=== PATIENT | female | born 1990 | race Caucasian/White ===

== ENCOUNTER 2024-12-18 11:36 | Emergency (ER) | payer OTHER, SELFPAY ==
--- NOTE | ~2024-12-18 | CT_ITS ---
CLINICAL HISTORY: lower abdominal tenderness CT ABDOMEN AND PELVIS WITH CONTRAST Comparison: None Findings: No consolidation or effusion. No acute abnormalities in the solid organs. There are 3.1 cm right and 1.2 cm left hepatic lobe cysts. Additional subcentimeter hepatic hypodensities are too small to accurately characterize. No urolithiasis. No large calcified gallstone. No AAA. No bowel obstruction, pneumoperitoneum, or pneumatosis. Diffuse wall thickening throughout the colon with adjacent fat stranding. No ascites or organized fluid collection. There is prominent fluid distention of the stomach with air, fluid and food debris. There is wall thickening distally. The appendix is identified. No acute appendicitis. The uterus is anteverted. There are 2 adjacent right adnexal cystic lesions measuring 1.5 cm and 2.0 cm. There are 2 adjacent left adnexal cystic lesions measuring 1.5 cm and 1.3 cm. Urinary bladder is poorly distended. Multiple pelvic phleboliths. No acute fracture. IMPRESSION: 1. Pancolitis. No bowel perforation or ischemia. 2. No bowel obstruction or ascites. 3. Normal appendix. 4. Probable distal gastritis. 5. No obstructive or acute inflammatory changes in the genitourinary tract. 6. No urolithiasis. 7. Small bilateral ovarian/paraovarian cysts. This document has been electronically signed by: Galina Licea DO on 12/18/2024 16:46:27
[2024-12-18 11:52] VITALS: BP 168/85; PULSE 122; RESP 19; TEMP 37.1; O2SAT 98; BMI 19.1
--- NOTE | 2024-12-18 11:55 | ED_ITS ---
HPI - Abdominal Pain General Chief Complaint: Abdominal Pain Stated Complaint: blood in stool Time Seen by Provider: 12/18/24 15:00 Source: patient, RN notes reviewed and old records reviewed Mode of arrival: ambulatory Limitations: no limitations History of Present Illness ED Provider: Cliff HPI narrative: Patient is a 34-year-old female with no pmhx presenting to the ED with complaint of abdominal cramping, diarrhea, and blood in stool since Thursday. Reports 2- 3 episodes of liquid diarrhea per hour. States at times she has noted red blood in her stool, denies melena. States eating or drinking triggers episodes of diarrhea within 5 minutes or so. Denies abdominal pain at baseline but develops epigastric and lower abdominal cramping prior to having a bowel movement. Denies personal or family history of Crohns, IBD, colitis. Denies recent travel or antibiotic use. Has seen GI in the past and attributed her diarrhea to anxiet. Denies fevers. Reports one episode of vomiting Thursday and one today, but relates episode on Thu to taking a photo of her dog's incision and today to anxiety. Denies dizziness, lightheadedness, syncope. Related Data Previous Rx's ?Medication ?Instructions ?Recorded ciprofloxacin HCl 500 mg tablet 500 mg PO BID #6 tabs 12/18/24 (Cipro) ondansetron 4 mg disintegrating 4 mg PO Q8H PRN nausea and 12/18/24 tablet vomiting #10 tabs Allergies Allergy/AdvReac Type Severity Reaction Status Date / Time Penicillins [PENICILLINS] Allergy Intermediate HIVES Verified 12/18/24 11:54 Review of Systems Review of Systems As per HPI Yes all other systems are reviewed and are negative Constitutional: Reports as per HPI [facility] Social History Social History Smoked in Last 30 Days: Yes Use of substances other than those prescribed or required for medical reasons: Yes Substance Use Type: Marijuana Substance Use Frequency: Daily Substance Use Frequency Other:: 2-3 Last Used Substance: Hours (ago) Advance Directives: No Advance Directives Information Provided: Yes Do you have a plan to hurt others: No Plan Physical Exam ED Vital Signs: Vital Signs - 24 hr 12/18/24 11:52 12/18/24 14:33 Temperature 98.8 F 98.3 F Pulse Rate 122 H 83 Respiratory Rate 19 17 Blood Pressure 168/85 H 114/77 Pulse Oximetry 98 97 Oxygen Delivery Method Room Air BMI result Body Mass Index 19.1 Vital signs have been reviewed and appear to be correct. Blood pressure normal. Heart rate normal. Respiratory rate normal. Temperature normal. Oxygen saturation normal. Const General: cooperative, healthy appearing and no acute distress Orientation/consciousness: oriented to person, oriented to place, oriented to time and patient oriented x3 Limitations: no limitations HENMT Head: Yes normocephalic and Yes atraumatic Ears: external ears normal General nose exam: Normal external nose present Face and sinus: Yes face symmetric Mouth: oropharynx normal and moist mucous membranes Throat: Yes uvula midline Eyes Pupils: Equal, round and reactive pupils present Neck Neck: Yes normal visual inspection and Yes supple Resp Effort & Inspection: normal respiratory effort and able to speak in complete sentences Auscultation: clear to auscultation bilaterally Cardio Rate: regular rate Rhythm: regular rhythm Heart sounds: S1 normal heart sound present and S2 normal heart sound present GI Palpation (GI): Soft to palpation and Tenderness to palpation present (GI) (mild TTP of epigastric area and bilateral lower quadrants) Auscultation: normoactive bowel sounds General: Yes no CVA tenderness Back/Spine/Pelvis Back: no CVA tenderness Skin General skin exam: elasticity normal and turgor normal Neuro General: oriented to person, oriented to place, oriented to time, patient oriented x3, moves all extremities, no focal motor deficits and CN's II-XI intact bilaterally Cranial nerves: Yes Equal, round and reactive pupils present Cognition (Neuro): normal cognition Extrem General: Yes full ROM, Yes no pedal edema and Yes no calf tenderness Psych Mental Status: mental status grossly normal Affect: normal affect Thought process: Normal thought process present Course Course Course Narrative: This is a Rapid Medical Exam performed in triage by Monique Corona PA-C. Full HPI, ROS and PE to be performed by primary ED provider. 34-year-old female presenting to the ED c/o epigastric abdominal pain/cramping, diarrhea with dark stools x5 days. Admits to 2 episodes of emesis. PE: NAD, nontoxic appearing, ambulating w/steady gait no resp distress Plan: Labs, UA Medical Decision Making Medical Decision Making MDM Narrative: Patient is a 34-year-old female with no pmhx presenting to the ED with complaint of abdominal cramping, diarrhea, and blood in stool since Thursday. On exam patient is awake, A+Ox3, VS WNL, afebrile, normal neurological exam without focal deficits, physical exam findings as above. Given reported symptoms and physical exam findings, initial differential includes but is not limited to anemia, colitis, IBD, Crohns, C. diff, diverticulitis. Labs notable for leukocytosis with shift, no anemia, mild hypokalemia. CT notable for pancolitis without perforation, obstruction or abscess. My interpretation is in agreement with the radiologist's interpretation. Results discussed with patient and all questions answered. She is afebrile, hemodynamically stable, tolerating PO, and is not anemic. Feel she is stable for discharge at this time. Will treat with cipro 500 BID x 3 days. Will also send zofran for nausea. Advised patient to follow up with PCP as well as GI. Return precautions discussed at bedside. Patient verbalized understanding of and agreement with plan. Differential Diagnosis Differential Diagnoses: The differential diagnosis associated with the presentation includes as per [facility] Admission/Observation Consideration of admission/observation: Escalation of care including admission/observation considered Patient would have been admitted to the hospital had their work up had any findings where hospital admission was appropriate and their clinical presentation warranted hospital admission. Lab Data [facility] Lab Attestation statement: I reviewed the patient's lab results. as per [facility] 12/18/24 12:20 12/18/24 12:20 Labs: Lab Results 12/18/24 Range/Units 12:20 WBC 18.1 H (4.8-10.8) X10*3/uL RBC 4.58 (4.20-5.50) X10*6/uL Hgb 13.2 (12.0-16.0) g/dl Hct 39.6 (37.0-47.0) % MCV 86.5 (80.0-98.0) fL MCH 28.8 (27.0-33.0) pg MCHC 33.3 (31.0-35.0) g/dl RDW 12.5 (11.0-16.0) % Plt Count 475 H (160-400) X10*3/uL MPV 9.5 (9.4-12.3) fL Immature Gran % (Auto) 0.7 H (0.0-0.4) % Neut % (Auto) 73.1 H (45-73) % Lymph % (Auto) 12.7 L (20-40) % [place] % (Auto) 7.5 (2-11) % Eos % (Auto) 5.3 H (0-4) % Baso % (Auto) 0.7 (0-2) % Lymph # (Auto) 2.3 (1.2-4.9) X10*3/uL [place] # (Auto) 1.4 H (0.1-1.2) X10*3/uL Eos # (Auto) 1.0 H (0.0-0.4) X10*3/uL Baso # (Auto) 0.1 (0.0-0.2) X10*3/uL Abs Immat Gran (auto) 0.13 H (0.00-0.03) X10*3/uL Absolute Neuts (auto) 13.2 H (2.0-8.3) x10*3/uL Absolute Nucleated RBC 0.000 (0.0-0.012) X10*3/uL Nucleated RBC % (auto) 0.0 (0.0-0.2) /100WBC PT 12.7 H (10.9-12.4) SEC INR 1.1 (0.9-1.1) Sodium 139 (135-145) mmol/L Potassium 3.1 L (3.3-5.1) mmol/L Chloride 108 (96-108) mmol/L Carbon Dioxide 23 (22-29) mmol/L Anion Gap 11 L (12-20) BUN 7 L (9-16) mg/dL Creatinine 0.80 (0.5-1.4) mg/dL Estim Creat Clear Calc 81.5 Estimated GFR > 60 Random Glucose 101 (60-115) mg/dL Calcium 8.5 (8.4-10.2) mg/dL Magnesium 2.0 (1.6-2.6) mg/dL Total Bilirubin 0.4 (0.0-1.0) mg/dL Direct Bilirubin 0.2 (0.0-0.5) mg/dL AST 15 (5-31) U/L ALT 9 (0-31) U/L Alkaline Phosphatase 115 (39-117) U/L Total Protein 7.4 (6.5-8.0) g/dL Albumin 4.2 (3.5-5.0) g/dL Lipase 21 (8-78) U/L Urine Color Dark Yellow Urine Appearance Clear Urine pH 6.0 (5.0-9.0) Ur Specific [place] >= 1.030 H (1.005-1.025) Urine Protein 30 (1+) H (Neg-Trace) mg/dL Urine Glucose (UA) Negative (Negative) mg/dL Urine Ketones 80 (Negative) mg/dL Urine Blood Trace H (Negative) Urine Nitrite Negative (Negative) Ur Leukocyte Esterase Negative (Negative) Urine RBC 0-2 (0-2) /HPF Urine WBC 0-5 (0-5) /HPF Ur Squamous Epith Cells 6-10 (0-2) /HPF Urine Bacteria Trace (None Seen) Hyaline Casts 3-5 (0-2) /LPF Urine Test NEGATIVE (NEGATIVE) Independent Interpretation I performed an independent interpretation of an: CT Scan Interpretation: CT A/P notable for pancolitis without perforation, obstruction or abscess. Radiology Impression Discussion of test interpretation with radiology: I have reviewed the radiologist's reading. Radiologist Impression: IMPRESSION: 1. Pancolitis. No bowel perforation or ischemia. 2. No bowel obstruction or ascites. 3. Normal appendix. 4. Probable distal gastritis. 5. No obstructive or acute inflammatory changes in the genitourinary tract. 6. No urolithiasis. 7. Small bilateral ovarian/paraovarian cysts. External Record Review External record reviewed: Inpatient record, Office record and Outpatient record Prescription Management I considered prescription management with: Antibiotic and Other Medications Administered Discontinued Medications Generic Name Dose Route Start Last Admin Trade Name Freq PRN Reason Stop Dose Admin Sodium Chloride 1,000 mls @ 999 mls/hr 12/18/24 15:45 12/18/24 16:04 Ns IV 12/18/24 16:45 999 mls/hr .Q1H1M YUSUF Administration Iohexol 100 ml 12/18/24 16:19 12/18/24 16:19 Iohexol 350 Mg/Ml 100 Ml Infus..Btl IV 12/18/24 16:20 85 ml ONCE ONE Administration Potassium Chloride 40 meq 12/18/24 16:34 12/18/24 17:03 Potassium Chloride Packet 20 Meq Packet PO 12/18/24 16:35 40 meq ONCE ONE Administration Discharge Plan Discharge Clinical Impression: Pancolitis Patient Disposition: Home, Self-Care Instructions: Colitis (ED) Additional Instructions: You were evaluated in the emergency department today for diarrhea and abdominal cramping. Your CT scan showed patel colitis which is inflammation of your intestines. You are being treated with an antibiotic, complete the full course as prescribed. You are also being prescribed ondansetron for nausea which you can use every 8 hours as prescribed. Your stool panel is pending and you will be contacted with any positive results or if a change in antibiotics is indicated. Be sure to drink plenty of fluids with electrolytes Such as Gatorade, Powerade, Pedialyte. we recommend that you follow-up with your primary care provider within the next few days. We also recommend that you follow-up with the municipal bond trader. Return to the emergency department if you develop fever, worsening pain, worsening blood in your stool or vomit, or unable to tolerate the antibiotics by mouth, or any other new or concerning symptoms. Prescriptions: New ciprofloxacin HCl [Cipro] 500 mg tablet 500 mg PO BID Qty: 6 0RF ondansetron 4 mg tablet,disintegrating 4 mg PO Q8H PRN (Reason: nausea and vomiting) Qty: 10 0RF Referrals: [facility] [Provider Group] - 1 week (pancolitis) Stand Alone Forms: Work/School Release Print Language: Hebrew
[2024-12-18 12:25] LABS: MANUAL DIFF FLAG NO
[2024-12-18 12:26] LABS: Basophils Absolute Auto 0.1 X10*3/uL (0.0-0.2); Basophils Percent Auto 0.7 % (0-2); Eosinophils Percent Auto 5.3 % (0-4); Hematocrit 39.6 % (37.0-47.0); Hemoglobin 13.2 g/dl (12.0-16.0); Imm Gran Abs Auto 0.13 X10*3/uL (0.00-0.03); Imm Gran Pct Auto 0.7 % (0.0-0.4); Lymphocytes Absolute Auto 2.3 X10*3/uL (1.2-4.9); Lymphocytes Percent Auto 12.7 % (20-40); Mean Corpuscular HGB Conc 33.3 g/dl (31.0-35.0); Mean Corpuscular Hemoglobin 28.8 pg (27.0-33.0); Mean Corpuscular Volume 86.5 fL (80.0-98.0); Mean Platelet Volume 9.5 fL (9.4-12.3); Monocytes Absolute Auto 1.4 X10*3/uL (0.1-1.2); Monocytes Percent Auto 7.5 % (2-11); Neutrophils Absolute Auto 13.2 x10*3/uL (2.0-8.3); Neutrophils Percent Auto 73.1 % (45-73); Platelet Count 475 X10*3/uL (160-400); Red Blood Count 4.58 X10*6/uL (4.20-5.50); Red Cell Distribution Width 12.5 % (11.0-16.0); White Blood Count 18.1 X10*3/uL (4.8-10.8)
[2024-12-18 12:27] LABS: Appearance Urine Clear; Color Urine Dark Yellow; Glucose Urine UA Negative (Negative); Leukocyte Esterase Urine Negative (Negative); Nitrite Urine Negative (Negative); Specific Gravity - Urine >= 1.030 (1.005-1.025); UMIC TRIGGER UACC YES; Urine Blood Trace (Negative); Urine Ketones 80 mg/dL (Negative); Urine Protein 30 (1+) mg/dL (Neg-Trace)
[2024-12-18 12:29] LABS: UPreg QC Valid YES; Urine Pregnancy NEGATIVE (NEGATIVE)
[2024-12-18 12:32] LABS: Bacteria Urine Trace (None Seen); INTERNATIONAL NORM RATIO 1.1 (0.9-1.1); Prothrombin Time 12.7 SEC (10.9-12.4); RBC Urine 0-2 /HPF (0-2); WBC Urine 0-5 /HPF (0-5)
[2024-12-18 12:41] LABS: Alanine Aminotransferase 9 U/L (0-31); Albumin Level 4.2 g/dL (3.5-5.0); Alkaline Phosphatase 115 U/L (39-117); Anion Gap 11 (12-20); Aspartate Amino Transferase 15 U/L (5-31); Bilirubin Direct 0.2 mg/dL (0.0-0.5); Bilirubin Total 0.4 mg/dL (0.0-1.0); Blood Urea Nitrogen 7 mg/dL (9-16); Calcium 8.5 mg/dL (8.4-10.2); Carbon Dioxide 23 mmol/L (22-29); Chloride 108 mmol/L (96-108); Creatinine Clr Calc Pharmacy 81.5; Estimated Glomerular Filt Rate > 60; Glucose Random 101 mg/dL (60-115); Lipase 21 U/L (8-78); Potassium 3.1 mmol/L (3.3-5.1); Sodium 139 mmol/L (135-145); Total Protein 7.4 g/dL (6.5-8.0)
[2024-12-18 14:33] VITALS: BP 114/77; PULSE 83; RESP 17; TEMP 36.8; O2SAT 97
[2024-12-18] MEDS: 0.9 % Sodium Chloride 1,000 ML 999 ML IV (16:04)
[2024-12-18] MEDS: iohexoL 350 MG/ML 100 ML INFUS..BTL IV (16:19)
[2024-12-18] MEDS: Potassium Chloride Packet 20 MEQ PACKET 40 MEQ PO (17:03)
[2024-12-18 17:41] VITALS: BP 114/77; PULSE 83; RESP 17; TEMP 36.8; O2SAT 97
[2024-12-18 17:48] VITALS: BP 112/71; PULSE 72; RESP 16; TEMP 36.7; O2SAT 98
[2024-12-18 18:43] LABS: CDiff Gene PCR NEGATIVE (Negative)
[2024-12-19 09:00] LABS: Adenovirus F 40/41 Not Detected (Not Detect.); Astrovirus Not Detected (Not Detect.); Campylobacter Not Detected (Not Detect.); Cryptosporidium Not Detected (Not Detect.); Cyclospora cayetanensis Not Detected (Not Detect.); E. coli EAEC Not Detected (Not Detect.); E. coli EPEC Not Detected (Not Detect.); E. coli ETEC Not Detected (Not Detect.); E. coli STEC Not Detected (Not Detect.); Entamoeba histolytica Not Detected (Not Detect.); Giardia lamblia Not Detected (Not Detect.); Norovirus GI/GII Not Detected (Not Detect.); Plesiomonas shigelloides Not Detected (Not Detect.); Rotavirus A Not Detected (Not Detect.); Salmonella Not Detected (Not Detect.); Sapovirus Not Detected (Not Detect.); Shigella sp./EIEC Not Detected (Not Detect.); Vibrio Not Detected (Not Detect.); Vibrio Cholerae Not Detected (Not Detect.); Yersinia enterocolitica Not Detected (Not Detect.)
== END 2024-12-18 17:48 | disposition home or self-care (01) ==
PROVIDERS: Physician Assistant; Registered Nurse Emergency; Emergency Provider Emergency Medicine
DX: K52.9 Noninfective gastroenteritis and colitis, unspecified (principal); R10.30 Lower abdominal pain, unspecified; F12.90 Cannabis use, unspecified, uncomplicated
CPT/HCPCS: 36415; 74177; 80048; 80076; 81001; 81025; 83690; 83735; 85025; 85610; 87493; 87507; 96360; 99284; Q9967

== ENCOUNTER → 2024-12-18 15:42 | Outpatient (BNV) | payer OTHER, SELFPAY | PROVIDERS: Emergency Provider Emergency Medicine; Visit Provider Radiology Diagnostic Radiology | DX: K76.89 Other specified diseases of liver (principal) | CPT/HCPCS: 74177 ==

== ENCOUNTER 2025-02-15 12:17 | Outpatient (AMB) | payer OTHER, SELFPAY ==
--- NOTE | 2025-02-15 12:18 | A.OFFVIS_ITS ---
Vital Signs 02/15/25 12:19 Height 5 ft 5 in Weight 118 lb BMI 19.6 BP 120/80 Blood Pressure Location Rt brachial Position Sitting Pulse 96 Pulse Source Pulse Oximeter Pulse Oximetry (%) 100 Oxygen Delivery Method Room Air Intake Visit Reasons: pancolitis Intake Note: Patient new consult for pancolitis Patient cc: C.O. recent hx of multiple GI concerns. Pt reports having diarrhea, rectal bleeding, abd pain. Pt states that this had been at its worst in December 2024 when she went [place] [facility] Pt started low FODMAP and abx per ED and has been doing much better since. Proposal Review Analyst Required: No Accompanied by: Self / Same As Patient Allergies Penicillins (PENICILLINS) Allergy (Intermediate, Verified 12/18/24 11:54) HIVES Medication List - Last Reconciled 02/15/25 by Ne Schmidt CNP hydroxyzine HCl 25 mg PO BID HPI HPI pancolitis: Details: Patient is a 34-year-old female with PMH of anxiety. Referred by PCP for further evaluation colitis. Patient presents for further evaluation of gastrointestinal complaints following an episode of pancolitis in December 2024, which was diagnosed after severe abdominal pain, diarrhea, and grossly bloody stools, resulting in an ED visit. At that time, imaging showed pancolonic inflammation without perforation/obstruction/abscess, and patient was treated with a 7?10 day course of antibiotics, with symptomatic improvement. Since treatment, intermittent, minimal, bright red blood per rectum persists, typically associated with increased straining; no recurrence of large volume bleeding. Reports significant improvement in appetite and transition to formed stools after dietary changes, now eating regularly. Patient reported nearly two years of non-formed stools, intermittent decreased appetite, hematochezia, and chronic external hemorrhoid since early , with GI evaluation in [place] focused on anxiety management, fiber supplementation, and antiemetics (not taken). Noted u nintentional weight loss to ~114?115 lbs (prior baseline ~125 lbs), now slowly regaining. Denies recent heartburn, dysphagia, or anorexia. Medical history significant for diagnosed anxiety disorder; denies diabetes, hypertension, hyperlipidemia, cancer. No history of IBD or celiac in first- degree relatives, but maternal cousin and aunt with celiac disease. Surgical history only significant for benign right breast lump excision >10 years ago. Family hx non-contributory for colon or gastric cancer. Social hx: -Diet: Adopted low-FODMAP, gluten-free, unprocessed ?clean? eating pattern with routine meals (breakfast: eggs, yogurt, fruit; lunch/dinner: rice/potato, protein, vegetables); avoids milk, has butter/yogurt; limited processed food. -Alcohol: Very rare, <1x/mo -Tobacco: Smoked cigarettes, then vaped (started 2020); ceased vaping 01-02-25 -Drugs: Daily cannabis oil vaping; denies other drug use. -Occupation: Flexible/own schedule - family hx as documented -denies personal hx of CA -denies significant cardiopulmonary history -tolerated anesthesia in the past without difficulty. [facility] Medical History (Updated 02/15/25 @ 13:35 by Ne Schmidt CNP) Hemorrhoid Blood in stool Unintentional weight loss Diarrhea Surgical History H/O vaginal surgery History of lumpectomy of right breast Family History Mother Thyroid cancer Diabetes Father Alcoholic Brother Depressed Alcoholic Heroin abuse Maternal Grandmother Diabetes Maternal Grandfather Stroke Paternal Grandfather Parkinson disease Paternal Grandmother Hx of schizophrenia Social History Alcohol intake: current Alcohol intake frequency: holidays/special occasions only Patient Tobacco Use Status: Current everyday Tobacco user Substance Use Type: Marijuana Review of Systems Const Reports as per HPI ENT Reports as per HPI Card Reports as per HPI Resp Reports as per HPI GI Reports as per HPI Reports as per HPI Physical Exam Vital Signs: Last Vital Signs Pulse 96 02/15/25 12:19 BP 120/80 02/15/25 12:19 Pulse Ox 100 02/15/25 12:19 Oxygen Delivery Method Room Air 02/15/25 12:19 BMI result Body Mass Index 19.6 Const General: healthy appearing, no acute distress and well developed Nutritional Appearance: average body habitus Orientation/consciousness: patient oriented x3 HEENT Head: Yes normal to inspection, Yes normocephalic and Yes atraumatic Face and sinus: Yes normal facial exam Eyes General: appearance normal, both eyes and all related structures Neck Neck: Yes normal visual inspection Resp Effort & Inspection: normal respiratory effort, able to speak in complete sentences, no tracheal deviation and symmetric chest movement Auscultation: clear to auscultation bilaterally Cardio Jugular venous distension: no JVD Rate: regular rate Rhythm: regular rhythm Heart sounds: S1 normal heart sound present, S2 normal heart sound present, no gallops and no murmurs GI Inspection: Yes normal to inspection and No distended Palpation (GI): Soft to palpation, not firm, nontender and No hepatosplenomegaly present Auscultation: normal bowel sounds Neuro General: patient oriented x3 Gait exam (Neuro): Normal gait present Psych Appearance: grossly normal Mental Status: mental status grossly normal Speech and movement: Normal speech and movement present Affect: normal affect Attitude: cooperative Thought process: Normal thought process present Thought content: Normal thought content present Insight: Good insight present (Psych) Judgement: Good judgement present (Psych) Assessment & Plan Assessment & Plan (1) Blood in stool: Code(s): K92.1 - Melena Category: Medical Plan: Chronic gastrointestinal bleeding and altered bowel habits post-treated pancolitis of unclear etiology (differentials incl. IBD, celiac, IBS, Hemorrhoidal bleeding, Thyroid dysfunction, other colitis or more severe colorectal neoplasm). Symptoms resolved after dietary changes, but intermittent hematochezia persists; unintentional weight loss concerning for ongoing organic pathology. Additional Testing: -Comprehensive fasting labs: CBC, CMP, LFTs, inflammatory markers, celiac se rology, TSH, A1C, HIV, hepatitis panel -Repeat to confirm normalization post-recent colitis -Stool studies: Celiac panel, infectious/inflammatory panel -Chest X-ray (r/o systemic pathology given weight loss, smoking hx) -Colonoscopy (with biopsy as indicated) Medication Management:Rx for colonoscopy: Miralax split prep + four laxative tabs Lifestyle Recommendations: -Maintain current ?clean,? unprocessed, low-FODMAP/gluten-free diet; continue dairy avoidance if effective -Increase water intake (reduce Gatorade) -Continue avoidance of nicotine Follow-Up: -Return after fasting labs, stool tests, and CXR; ~4?6 weeks for review -Colonoscopy to be prioritized within next 8 weeks -PCP/MEDICAL DEVICE SALES to ensure cervical cancer screening is scheduled/up to date -Discuss possible additional cancer screening (mammogram) with PCP if GI/cervical w/u negative (2) Hemorrhoid: Code(s): K64.9 - Unspecified hemorrhoids Category: Medical Qualifiers: Hemorrhoid type: unspecified Qualified Code(s): K64.9 - Unspecified hemorrhoids Plan: Ongoing minor bright red blood per rectum, worse with straining; longstanding hx Additional Testing: Addressed via colonoscopy; no specific studies at this time Lifestyle Recommendations: Avoid straining, maintain high-fiber diet if tolerated, hydrate Follow-Up: Monitor for increased bleeding or prolapse; reassess post-GI workup Plan Follow-up in 4 weeks or sooner as needed Time: I spent a total of 40 minutes on the date of encounter which includes: Preparing to see the patient (reviewed previous documentation, test results and medical history) Performing a medically appropriate exam and/or evaluation Ordering medications, tests, and procedures Documenting clinical information in the health record Orders: Orders Hemoglobin A1c Today R19.7 - Diarrhea, unspecified, R63.4 - Abnormal weight loss TSH reflex Free T4 Today R19.7 - Diarrhea, unspecified Calprotectin, Fecal Today R19.7 - Diarrhea, unspecified C Reactive Protein Today R19.7 - Diarrhea, unspecified Hepatitis A,B,C Profile Today R63.4 - Abnormal weight loss XR chest 2V Today R63.4 - Abnormal weight loss Transglutaminase IgA Today R19.7 - Diarrhea, unspecified Complete Blood Count Auto Diff Today R19.7 - Diarrhea, unspecified Comprehensive [place]. Panel Fast Today R19.7 - Diarrhea, unspecified HIV Ab/Ag Today R63.4 - Abnormal weight loss Medications: New bisacodyl (Dulcolax (bisacodyl)) Take four tablets pre colonoscopy instructions 20 mg (4 x 5 mg) PO ONCE 4 tabs 0RF 1 day polyethylene glycol 3350 (Miralax) per colonoscopy prep instructions 238 grams PO ONCE 238 grams 0RF Coding Level of Care Code New Pt New Pt Level 4 (89897) Patient Type New Diagnoses Blood in stool K92.1 Hemorrhoids, unspecified hemorrhoid type K64.9 Hemorrhoid type: unspecified
[2025-02-15 12:19] VITALS: BP 120/80; PULSE 96; O2SAT 100; BMI 19.6
--- OUTSIDE RECORDS SUMMARY | 2025-02-15 12:58 | XMS_ITS | Encounter Summary ---
Author Organization [facility] Address [address] [place] [phone] Phone Care Team Providers Care Clay Burner Name Role Phone Aida Short MD Primary Care Provider [phone] Encounter Details Date Type Department Care Team (Late st Contact Info) Description 02/10/2014 Documentation [facility] [address] [place] [address] Family Medicine, Physician [address], [place] [id number] Social History Tobacco Use Types Packs/Day Years Used Date Smoking Tobacco: Never Assessed Comments Unknown Sex and Gender Information Value Date Recorded Sex Assigned at Not on file Legal Sex Female 4:36 PM EDT Gender Identity Not on file Sexual Orientation Not on file documented as of this encounter Plan of Treatment Not on file documented as of this encounter Visit Diagnoses Not on filedocumented in this encounter Care Teams Clay Burner Relationship Specialty Start Date End Date Aida Short MD [address] [place] [id number] PCP - General 02/20/17 10/21/22 documented as of this encounter
--- OUTSIDE RECORDS SUMMARY | 2025-02-15 12:58 | XMS_ITS ---
Author Name [facility] Organization Unknown Care Team Organization Name Specialty Phone Email Start Date End Da te [facility] KILO YOUSIF Primary Care 12/19/2022 02/29/2024 [facility] Shiloh Duarte Primary Care 05/20/2022 024
--- OUTSIDE RECORDS SUMMARY | 2025-02-15 12:58 | XMS_ITS | Clinical Summary ---
Author Organization 175 [facility] Address 175 [place] [address] Phone Care Team Providers Care Community Services Officer Name Role Phone Kathy Oliveira MD Primary Care Prov ider Allergies Active Allergy Reactions Criticality Noted Date Comments Penicillin V Hives 03/02/2014 Medications nicotine (NICODERM CQ) 14 mg/[address] 1 Patch onto the skin daily for 60 days. 3 Active ondansetron (ZOFRAN) 4 mg tablet Take 1 Tablet by mouth every 12 hours as needed for Nausea Active pantoprazole (PROTONIX) 40 mg EC tablet Take 1 tablet (40 mg total) by mouth 1 (one) time each day. Take in am on empty stomach wait 30 mins and then eat to activate the medication 30 each 4 Active Additional Information Patient not taking.Reported on 12/20/2024 psyllium (METAMUCIL) 3.4 gram packet Take 1 packet by mouth 1 (one) time each day. 30 packet 11 4 Active Additional Information Patient not taking.Reported on 12/20/2024 hydrOXYzine HCL (ATARAX) 25 mg tablet Take 1 tablet (25 mg total) by mouth 2 (two) times a day. 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 Lump in neck 11/21/2020 Encounters Date Type Department Care Team Description 12/26/2024 Telephone Adult Medicine [address] [phone] Kathy Oliveira MD Referral 12/20/2024 10:30 AM EDT Office Visit Adult Medicine [address] [phone] Ariadne Rendon PA Pancolitis ([facility] V24, [facility] V28) (Primary Dx); Anxiety from Last 3 Months Immunizations Name Administration Dates Next Due DTP 04/11/1994, 2,1990,08/19,1990 [id number] (Pentacel) 2mo to less than 5yo 07/22/1991,1990,1990,06/23 HPV, Quadrivalent 08/31/2007,04/28/2007,02/25/20 07 Hepatitis B Pediatric (Enger ix B; Recombivax HB) to less than 20 yo 09/16/2001,05/17/2001,2001 IPV Inactivated polio (Ipol) 6wks and older 04/11/1994,10/19/1991,1990,06/23 Influenza Quadravalent, MDCK , 0.5ml, preservative free (Flucelvax) 6mo and older 05/14/2021 Influenza trivalent, with pr eservative (Fluzone; Afluria) 6mo and older 05/13/2021 MMR, measles mumps and rubel la Live (Priorix; M-M-R II) 12mo and older 04/07/1995,07/22/1991 Meningococcal MCV4P 02/24/2007 PPD Test 11/28/2020 Td Tetanus diptheria (Tdvax) 7yo and older 2001 Tdap Tetanus diptheria acell ular pertussis (Boostrix; Adacel) 7yo and older 03/07/2019,02/24/2007 Surgical History Surgery Date Site/Laterality Comments OTHER SURGICAL HISTORY PROCEDURE: ---- OTHER ----; COMMENT: vaginal reconstruction, [place]ia[place] [facility] [place] Right PROCEDURE: HISTORICAL BREAST LUMPECTOMY; COMMENT: Dr. Mcclain Medical History Medical History Date Comments Anxiety DX:Anxiety Family History Medical History Relation Name Comments Depression Brother 1 Alcohol/Drug Brother 2 heroine Alcohol abuse Father Stroke Maternal Grandfather Diabetes Maternal Grandmother Diabetes Mother Other: Thyroid Cancer Mother 30s? Parkinson's Disease Paternal Grandfather Schizophrenia Paternal Grandmother with p yschosis Breast cancer Neg Hx Colon cancer Neg Hx Heart attack Neg Hx Ovarian cancer Neg Hx Relation Name Status Comments Brother 1 Alive Brother 2 Alive Father Alive Maternal Grandfather Maternal Grandmother Mother Alive Paternal Grandfather Paternal Grandmother Social History Tobacco Use Types Packs/Day Years Used Date Smoking Tobacco: Every Day Smokeless Tobacco: Never Tobacco Cessation:Ready to Q uit: Not Asked; Counseling Given: Not Answered Alcohol Use Standard Drinks/Week Comments Not Currently 0 (1 standard drink = 0.6 oz pur e alcohol) Comments No Sex and Gender Information Value Date Recorded Sex Assigned at Not on file Legal Sex Female 10:22 PM EST Gender Identity Not on file Sexual Orientation Not on file Obstetrics History Last Filed Vital Signs Vital Sign Reading Time Taken Comments Blood Pressure 160/90 12/20/2024 10:16 AM EDT Pulse 102 12/20/2024 10:16 AM EDT Temperature 36.7 C (98 F) 12/20/2024 10:16 AM EDT Respiratory Rate 14 12/20/2024 10:16 AM EDT Oxygen Saturation - - Inhaled Oxygen Concentration - - Weight 54 kg (119 lb) 12/20/2024 10:16 AM EDT Height 165.1 cm (5' 5 ) 12/20/2024 10:16 AM EDT Body Mass Index 19.8 12/20/2024 10:16 AM EDT Plan of Treatment Upcoming Encounters Date Type Department Care Team (Late st Contact Info) Description 02/27/2025 2:40 PM EDT Office Visit Gastroenterology - [place] 175 [facility] 175 [facility] [address] [place] [address] Aditi Miranda NP 175 [place] [address] Health Maintenance Due Date Last Done Comments Pneumococcal Vaccine: Pediatrics (0 to 5 Years) and At-Risk Patients (6 to 49 Years) (1 of 2 - PCV) 2009 Cervical Cancer Screening: Pap Smear 09/02/2020 09/02/2017, 09/02/2017 COVID-19 Vaccine (3 - Moderna risk series) 03/30/2021 03/02/2021, 02/02/2021 HIV Screening 06/21/2022 Hepatitis C Screening 06/21/2022 Social Influencers of Health Screening 06/21/2022 Depression Screening 07/13/2024 Influenza Vaccine (#1) 2025 05/14/2021, 2020 DTaP,Tdap,and Td Vaccines (9 - Td or Tdap) 03/07/2029 03/07/2019, 02/24/2007, 2001, Additional history exists Cholesterol Screening (Lipid Panel) 04/29/2029 04/29/2024, 04/29/2024 HIB Vaccines Completed 07/22/1991, 07/13, 1990, Additional history exists IPV Vaccines Completed 04/11/1994, 02/1992, 07/22/1991, Additional history exists MMR Vaccines Completed 04/07/1995, 07/22/1991 Hepatitis B Vaccines Completed 09/16/2001, 05/17/2001, 2001 Meningococcal ACWY Vaccine Completed 02/24/2007 HPV Vaccines Completed 08/31/2007, 04/12, 02/24/2007 Hepatitis A Vaccines Aged Out No long er eligible based on patient's age to complete this topic Meningococcal B Vaccine Aged Out No l onger eligible based on patient's age to complete this topic RSV Immunization Patients Under 20 months Aged Out No longer eligible based on patient's age to complete this topic Varicella Vaccines Aged Out No longer eligible based on patient's age to complete this topic Procedures Procedure Name Priority Date/Time Associated Diagnosis Comments LIPID PANEL Routine 04/29/2024 HM HPV Routine 09/02/2017 from Last 3 Months or Most Recently Relevant to Health Maintenance Results * (ABNORMAL) Lipid panel (04/29/2024) LDL/HDL Ratio 2 0 - 4 Triglycerides 46 0 - 150 mg/dL Cholesterol 189 0 - 200 mg/dL HDL 79 >=40 mg/dL LDL Cholesterol 101(A) 0 - 100 mg/dL Blood Venous blood specimen / Unknown Historical Provider LAB BLOOD ORDERABLES Shannen l Result * Cervical Cancer Screening: HPV (09/02/2017) Cervical Cancer Screening: HPV Abstracted, no interpretation Historical Provider HEALTH MAINTENANCE Final Result from Last 3 Months or Most Recently Relevant to Health Maintenance Insurance [employer] Care Teams Community Services Officer Relationship Specialty Start Date End Date Kathy Oliveira MD [address] [place] [phone] PCP - General Internal Medicine 02/10/22
== END 2025-02-15 13:19 | disposition home or self-care (01) ==
LOC: HO.HGI 12:17
PROVIDERS: Visit Provider Nurse Practitioner Family
DX: K92.1 Melena (principal); K64.9 Unspecified hemorrhoids
CPT/HCPCS: 99204

== ENCOUNTER 2025-02-16 09:57 | Outpatient (REF) | payer OTHER, SELFPAY ==
--- NOTE | ~2025-02-16 | XR_ITS ---
EXAMINATION: XR CHEST 2 VIEWS HISTORY: R63.4 - Abnormal weight loss COMPARISON: There are no prior studies available for comparison. FINDINGS: PA and lateral views of the chest are submitted. The lungs are expanded and clear. There is no pleural effusion, pneumothorax, or pulmonary vascular congestion. The heart is normal in size. The bones are intact. XR/XR chest 2V IMPRESSION: Normal examination of the chest. Electronically signed by: Ricardo Merritt MD 02/16/2025 10:37 AM EDT
[2025-02-16 10:11] LABS: MANUAL DIFF FLAG NO
--- OUTSIDE RECORDS SUMMARY | 2025-02-16 10:26 | XMS_ITS | Clinical Summary ---
Author Organization 175 [facility] Address [address] [place] [address] Phone Care Team Providers Care Back End Developer Name Role Phone Kathy Oliveira MD Primary [...] Care Team Description 12/26/2024 Telephone Adult Medicine [address] [phone] Kathy Oliveira MD Referral 12/20/2024 10:30 AM EDT Office Visit Adult Medicine [address] [phone] Ariadne Rendon PA Pancolitis ([facility] V24, [facility] V28) (Primary Dx); Anxiety from Last 3 Months Immunizations Name Administration Dates Next Due DTP 04/11/1994, 2,1990,08/19,1990 [id number] (Pentacel) 2mo to less than 5yo 07/22/1991,1990,1990,06/23 [...] ---- OTHER ----; COMMENT: vaginal reconstruction, labiaplasty, [facility] [place] 08/15/2014 Right PROCEDURE: HISTORICAL BREAST [...] 2:40 PM EDT Office Visit Gastroenterology - [place] 175 [facility] 175 [facility] [address] [place] [address] Aditi Miranda NP 175 [place] [address] Health Maintenance Due Date Last Done Comments [...] to Health Maintenance Insurance [employer] Care Teams Back End Developer Relationship Specialty Start Date End Date Kathy Oliveira MD [address] [place] [address] PCP - General Internal Medicine 02/10/22
--- OUTSIDE RECORDS SUMMARY | 2025-02-16 10:26 | XMS_ITS | Encounter Summary ---
Author Organization [facility] Address [address] [place] [address] Phone Care Team Providers Care Digital Imaging Technician Name Role Phone Aida Short MD Primary Care Provider [phone] Encounter Details Date Type Department Care Team (Late st Contact Info) Description 02/10/2014 Documentation [facility] [place] Family Medicine [address] [place] [address] Family Medicine, Physician [address] [place], [place] 6[address] Social History Tobacco Use Types Packs/Day Years [...] on filedocumented in this encounter Care Teams Digital Imaging Technician Relationship Specialty Start Date End Date Aida Short MD [address] [place] [address] PCP - General 02/20/17 10/21/22 documented as of this encounter
[2025-02-16 10:34] LABS: Hematocrit 38.8 % (37.0-47.0); Hemoglobin 12.1 g/dl (12.0-16.0); Imm Gran Abs Auto 0.04 X10*3/uL (0.00-0.03); Imm Gran Pct Auto 0.4 % (0.0-0.4); Lymphocytes Absolute Auto 2.3 X10*3/uL (1.2-4.9); Mean Corpuscular HGB Conc 31.2 g/dl (31.0-35.0); Mean Corpuscular Hemoglobin 27.6 pg (27.0-33.0); Mean Corpuscular Volume 88.4 fL (80.0-98.0); NRBC Abs Auto 0.000 X10*3/uL (0.0-0.012); NRBC Pct Auto 0.0 /100WBC (0.0-0.2); Platelet Count 389 X10*3/uL (160-400); Red Blood Count 4.39 X10*6/uL (4.20-5.50); White Blood Count 9.3 X10*3/uL (4.8-10.8)
[2025-02-16 10:46] LABS: Hemoglobin A1C 104.1289 umol/L; Total Hemoglobin (HGBA1C) 3198.1260 umol/L
[2025-02-16 11:12] LABS: Alanine Aminotransferase 9 U/L (0-31); Albumin Level 4.2 g/dL (3.5-5.0); Alkaline Phosphatase 98 U/L (39-117); Anion Gap 10 (12-20); Aspartate Amino Transferase 13 U/L (5-31); Blood Urea Nitrogen 8 mg/dL (9-16); Calcium 8.4 mg/dL (8.4-10.2); Carbon Dioxide 26 mmol/L (22-29); Chloride 107 mmol/L (96-108); Estimated Glomerular Filt Rate > 60; Potassium 3.9 mmol/L (3.3-5.1); Sodium 139 mmol/L (135-145); Total Protein 7.3 g/dL (6.5-8.0)
[2025-02-16 11:36] LABS: HBS Num1 124.57 mIU/mL (0-7.99); HBc Num1 0.06 S/CO (0.00-0.79); HBsAGNum1 0.44 S/CO (0.00-0.99); HIV Num 1 0.05 S/CO (0.00-0.99); Hepatitis A Antibody IgM 0.16 Index (0-0.79); Hepatitis B Surface Antigen Negative (Negative); ~HepC Num1 0.11 S/CO (0.00-0.79); ~Hepatitis A Antibody IgM Nonreactive (Nonreactive); ~Hepatitis B Surface Antibody REACTIVE (Nonreactive); ~Hepatitis C Antibody Nonreactive (Nonreactive)
== END 2025-02-16 09:58 | disposition home or self-care (01) ==
LOC: HO.XRAY 09:57
PROVIDERS: Visit Provider Nurse Practitioner Family
DX: Z11.59 Encounter for screening for other viral diseases (principal); Z11.4 Encounter for screening for human immunodeficiency virus [HIV]; Z13.1 Encounter for screening for diabetes mellitus; R63.4 Abnormal weight loss; R19.7 Diarrhea, unspecified
CPT/HCPCS: 36415; 71046; 80053; 83036; 84443; 85025; 86140; 86364; 86704; 86706; 86709; 86803; 87340; 87389

== ENCOUNTER → 2025-02-16 10:14 | Outpatient (BNV) | payer OTHER, SELFPAY | PROVIDERS: Visit Provider Radiology Diagnostic Radiology | DX: R63.4 Abnormal weight loss (principal) | CPT/HCPCS: 71046 ==

== ENCOUNTER 2025-02-21 07:15 | Outpatient (REF) | payer OTHER, SELFPAY ==
--- OUTSIDE RECORDS SUMMARY | 2025-02-21 09:41 | XMS_ITS | Clinical Summary ---
Author Organization 175 [facility] Address [address] [place] [address] Phone Care Team Providers Care Glass Novelty Maker Name Role Phone Kathy Oliveira MD Primary [...] Care Team Description 12/26/2024 Telephone Adult Medicine [address] [phone] Kathy Oliveira MD Referral 12/20/2024 10:30 AM EDT Office Visit Adult Medicine [address] [phone] Ariadne Rendon PA Pancolitis ([facility] V24, [facility] V28) (Primary Dx); Anxiety from Last 3 Months Immunizations Name Administration Dates Next Due DTP 04/11/1994, 2,1990,08/19,1990 [id number] (Pentacel) 2mo to less than 5yo 07/22/1991,1990,1990,06/23 [...] ---- OTHER ----; COMMENT: vaginal reconstruction, labiaplasty, [facility] [place] BREAST [place]UM[place]Y 08/15/2014 Right [...] 2:40 PM EDT Office Visit Gastroenterology - [place] 175 [facility] 175 [facility] [address] [place] [address] Aditi Miranda NP [address] [address] 03/14/2025 9:30 AM EDT Office Visit Adult Medicine [facility] [address] [place] [address] Cristin Hdz PA [address] [place] [address] Health Maintenance Due Date Last Done Comments [...] Associated Diagnosis Comments LIPID PANEL Routine 04/29/2024 HPV Routine 09/02/2017 from Last 3 Months [...] Result * Cervical Cancer Screening: HPV (09/02/2017) Pathologist [facility] Cervical Cancer Screening: HPV Abstracted, no interpretation Historical Provider HEALTH MAINTENANCE Final Result from Last 3 Months or Most Recently Relevant to Health Maintenance Insurance [employer] Care Teams Glass Novelty Maker Relationship Specialty Start Date End Date Kathy Oliveira MD [address] [place] [address] [phone] PCP - General Internal Medicine 8/1/22
--- OUTSIDE RECORDS SUMMARY | 2025-02-21 09:41 | XMS_ITS | Encounter Summary ---
Author Organization [facility] Address [address] [place] [address] Phone Care Team Providers Care Field Coil Winder Name Role Phone Aida Short MD Primary Care Provider [phone] Encounter Details Date Type Department Care Team (Late st Contact Info) Description 02/10/2014 Documentation [facility] [place] Family Medicine [address] [place] [address] Family Medicine, Physician [address] [place], [place] [address] Social History Tobacco Use Types Packs/Day Years [...] on filedocumented in this encounter Care Teams Field Coil Winder Relationship Specialty Start Date End Date Aida Short MD [address] [place] [phone] PCP - General 02/20/17 10/21/22 documented as of this encounter
[2025-02-27 18:23] LABS: Calprotectin, Fecal 1440 mcg/g
== END 2025-02-21 07:16 | disposition home or self-care (01) ==
LOC: HO.LNP 07:15
PROVIDERS: Visit Provider Nurse Practitioner Family
DX: R19.7 Diarrhea, unspecified (principal)
CPT/HCPCS: 83993

== ENCOUNTER 2025-03-06 09:47 | Outpatient (REF) | payer OTHER, SELFPAY ==
--- OUTSIDE RECORDS SUMMARY | 2025-03-06 10:40 | XMS_ITS | Encounter Summary ---
Author Organization [facility] Address [address] [place] [address] Phone Care Team Providers Care Bending Machine Operator Name Role Phone Aida Short MD Primary Care Provider [phone] Encounter Details Date Type Department Care Team (Late st Contact Info) Description 02/10/2014 [place]ation [facility] [address] [place] [address] Family Medicine, Physician [address] [place], [place] [address]181 Social History Tobacco Use Types Packs/Day Years [...] on filedocumented in this encounter Care Teams Bending Machine Operator Relationship Specialty Start Date End Date Aida Short MD [address] [place] [address] PCP - General 02/20/17 10/21/22 documented as of this encounter
--- OUTSIDE RECORDS SUMMARY | 2025-03-06 10:40 | XMS_ITS | Clinical Summary ---
Author Organization 175 [facility] Address 175 [place] [address] Phone Care Team Providers Care Quality Improvement Consultant Name Role Phone Kathy Oliveira MD Primary [...] Care Team Description 12/26/2024 Telephone Adult Medicine [address] [phone] Kathy Oliveira MD Referral 12/20/2024 10:30 AM EDT Office Visit Adult Medicine [address] [phone] Ariadne Rendon PA Pancolitis ([facility] V24, [facility] V28) (Primary Dx); Anxiety from Last 3 Months Immunizations Name Administration Dates Next Due DTP 04/11/1994, 2,1990,08/19,1990 [id number] (Pentacel) 2mo to less than 5yo 07/22/1991,1990,1990,06/23 [...] ---- OTHER ----; COMMENT: vaginal reconstruction, labiaplasty, [facility] [place] 08/15/2014 Right PROCEDURE: HISTORICAL BREAST [...] Care Team (Late st Contact Info) Description 03/14/2025 9:30 AM EDT Office Visit Adult Medicine [address] [phone] Cristin Hdz PA [address] [place] [address] Health Maintenance Due Date Last Done Comments [...] to Health Maintenance Insurance [employer] Care Teams Quality Improvement Consultant Relationship Specialty Start Date End Date Kathy Oliveira MD [address] [place] [phone] PCP - General Internal Medicine 02/10/22
[2025-03-09 16:58] LABS: VITAMIN D (1,25 OH) D3 32 pg/mL; Vit D (1,25-Dihydroxy) Total 32 pg/mL (18-72); Vitamin D (1,25 OH) D2 <8 pg/mL
== END 2025-03-06 09:48 | disposition home or self-care (01) ==
LOC: HO.LAB 09:47
PROVIDERS: Visit Provider Nurse Practitioner Family
DX: R19.5 Other fecal abnormalities (principal)
CPT/HCPCS: 36415; 81479; 82397; 82652; 83520; 86140; 88346; 88350

== ENCOUNTER 2025-04-05 07:46 | Outpatient (AMB) | payer OTHER, SELFPAY ==
--- OUTSIDE RECORDS SUMMARY | 2025-04-05 07:48 | XMS_ITS | Encounter Summary ---
Author Organization [facility] Address [address] [place] [address] Phone Care Team Providers Care Shrimping Boat Captain Name Role Phone Aida Short MD Primary Care Provider [phone] Encounter Details Date Type Department Care Team (Late st Contact Info) Description 02/10/2014 Documentation [facility] [place] [address] [place] [address] Family Medicine, Physician [address] [place], [place] [phone] Social History Tobacco Use Types Packs/Day Years [...] on filedocumented in this encounter Care Teams Shrimping Boat Captain Relationship Specialty Start Date End Date Aida Short MD [address] [place] [phone] PCP - General 02/20/17 10/21/22 documented as of this encounter
--- OUTSIDE RECORDS SUMMARY | 2025-04-05 07:48 | XMS_ITS | Encounter Summary ---
Author Organization [facility] Address [address] [place] [address] Phone Care Team Providers Care Associate Professor Of Philosophy Name Role Phone Aida Short MD Primary Care Provider [phone] Encounter Details Date Type Department Care Team (Late st Contact Info) Description 02/17/2014 Documentation [facility] [place] Family Medicine [address] [place] [address] Family Medicine, Physician [address] [place], [place] [phone] Social History Tobacco Use Types Packs/Day Years [...] on filedocumented in this encounter Care Teams Associate Professor Of Philosophy Relationship Specialty Start Date End Date Aida Short MD [address] [place] [phone] PCP - General 02/20/17 10/21/22 documented as of this encounter
--- OUTSIDE RECORDS SUMMARY | 2025-04-05 07:48 | XMS_ITS | Clinical Summary ---
Author Organization [facility] Address [address] [place] [address] Phone Care Team Providers Care Ranch Hand Livestock Name Role Phone Unavailable Primary Care Provider [...]
--- OUTSIDE RECORDS SUMMARY | 2025-04-05 07:48 | XMS_ITS | Encounter Summary ---
Author Organization [facility] Address [address] [place] [address] Phone Care Team Providers Care Liquid Fertilizer Servicer Name Role Phone Aida Short MD Primary Care Provider [phone] Encounter Details Date Type Department Care Team (Late st Contact Info) Description 02/26/2017 Conversion Encounter [facility] [place] [address] [place] [address] Social History Tobacco Use Types Packs/Day Years [...] on filedocumented in this encounter Care Teams Liquid Fertilizer Servicer Relationship Specialty Start Date End Date Aida Short MD [address] [place] [address] PCP - General 02/20/17 10/21/22 documented as of this encounter
--- OUTSIDE RECORDS SUMMARY | 2025-04-05 07:48 | XMS_ITS | Encounter Summary ---
Author Organization [facility] Address [address] [place] [address] Phone Care Team Providers Care Level Vial Setter Name Role Phone Aida Short MD Primary Care Provider [phone] Encounter Details Date Type Department Care Team (Late st Contact Info) Description 05/01/2011 Documentation [facility] [place] [address] [place] [address] Family Medicine, Physician [address] [place], [place] [address] Social History Tobacco Use Types Packs/Day Years [...] on filedocumented in this encounter Care Teams Level Vial Setter Relationship Specialty Start Date End Date Aida Short MD [address] [place] [address] PCP - General 02/20/17 10/21/22 documented as of this encounter
--- OUTSIDE RECORDS SUMMARY | 2025-04-05 07:48 | XMS_ITS | Clinical Summary ---
Author Organization [facility] Address [address] [place] [address] Phone Care Team Providers Care Engineering Supervisor Name Role Phone Kathy Oliveira MD Primary [...] AM EDT Office Visit Adult Medicine [address] [phone] Cristin Hdz PA Chronic abdominal pain (Primary Dx); Encounter for screening involving social determinants of health (SDoH); Screening for depression from Last 3 Months Immunizations Name Administration Dates Next Due DTP 04/11/1994, 2,1990,08/19,1990 [id number] (Pentacel) 2mo to less than 5yo 07/22/1991,1990,1990,06/23 [...] ---- OTHER ----; COMMENT: vaginal reconstruction, labiaplasty, [facility] BREAST LUMPECTOMY 08/15/2014 Right PROCEDURE: HISTORICAL BREAST [...] care for your loved ones. For example, child's nurse or elderly care for an older adult? [...] 2:00 PM EST Office Visit Adult Medicine [address] [phone] Kathy Oliveira MD [address] [place] [phone] Health Maintenance Due Date Last Done Comments [...] Cholesterol Screening (Lipid Panel) 04/29/2029 04/29/2024, 04/29/2024 RSV Immunization Adult Patients (1 - 1-dose 75+ series) 2065 HIB Vaccines Completed 07/22/1991, 10/11, 1990, Additional [...] Venous blood specimen / Unknown Historical Provider MD LAB BLOOD ORDERABLES Shannen l Result * Cervical Cancer Screening: HPV (09/02/2017) Pathologist [facility] Cervical Cancer Screening: HPV Abstracted, no interpretation Historical Provider HEALTH MAINTENANCE Final Result from Last 3 Months or Most Recently Relevant to Health Maintenance Insurance [place] [phone] Care Teams Engineering Supervisor Relationship Specialty Start Date End Date Kathy Oliveira MD [address] [place] [phone] PCP - General Internal Medicine 02/10/22
--- NOTE | 2025-04-05 07:50 | A.OFFVIS_ITS ---
Vital Signs 04/05/25 07:51 Height 5 ft 5 in Weight 120 lb 8 oz BMI 20.1 BP 99/68 Blood Pressure Location Lt brachial Position Sitting Pulse 85 Pulse Oximetry (%) 96 Oxygen Delivery Method Room Air Intake Visit Reasons: Pancolitis mgmt. ~6 week FUV. Intake Note: Patient 6 week follow up for Pancolitis mgmt, lab/stool and chest x-ray results. Patient denies any GI issues. Angular Js Developer Required: No Accompanied by: Self / Same As Patient Allergies Penicillins (PENICILLINS) Allergy (Intermediate, Verified 04/05/25 07:50) HIVES Medication List - Last Reconciled 04/05/25 by Ne Schmidt CNP bisacodyl (Dulcolax (bisacodyl)) 20 mg (4 x 5 mg) PO ONCE 1 day hydroxyzine HCl 25 mg PO BID polyethylene glycol 3350 (Miralax) 238 grams PO ONCE HPI HPI Pancolitis mgmt. ~6 week FUV.: Details: Patient is a 34-year-old female with PMH of anxiety. F/u for chronic GI sx and prior ER dx of pancolitis (December 2024), presumed IBD. Pt presents with ongoing but improved lower GI sx. States current sx are mild?mainly early AM urgency (must reach BR within ~6 minutes upon waking), with 2 BMs in AM and no further BMs for remainder of day. BM consistency described as first half formed, second half looser, minimal blood only if straining, no regular hematochezia. No abd pain, nausea, vomiting, or upper GI sx. Reports dietary modifications have continued (avoiding milk and caffeine, occasional yogurt/butter), with good adherence and improved wgt (now ~120 lbs; up from 118 lbs last month). No new systemic complaints. No medication changes. No hospitalization, UC flares, or new urgent care visits. [facility] Medical History (Updated 04/05/25 @ 12:04 by Ne Schmidt CNP) Inflammatory bowel disease Elevated fecal calprotectin Hemorrhoid Blood in stool Unintentional weight loss Diarrhea Surgical History H/O vaginal surgery History of lumpectomy of right breast Family History Mother Thyroid cancer Diabetes Father Alcoholic Brother Depressed Alcoholic Heroin abuse Maternal Grandmother Diabetes Maternal Grandfather Stroke Paternal Grandfather Parkinson disease Paternal Grandmother Hx of schizophrenia Social History Alcohol intake: current Alcohol intake frequency: holidays/special occasions only Patient Tobacco Use Status: Current everyday Tobacco user Substance Use Type: Marijuana Review of Systems Const Reports as per HPI ENT Reports as per HPI Card Reports as per HPI Resp Reports as per HPI GI Reports as per HPI Reports as per HPI Physical Exam Vital Signs: Last Vital Signs Pulse 85 04/05/25 07:51 BP 99/68 04/05/25 07:51 Pulse Ox 96 04/05/25 07:51 Oxygen Delivery Method Room Air 04/05/25 07:51 BMI result Body Mass Index 20.1 Const General: healthy appearing, no acute distress and well developed Nutritional Appearance: average body habitus Orientation/consciousness: patient oriented x3 HEENT Head: Yes normal to inspection, Yes normocephalic and Yes atraumatic Face and sinus: Yes normal facial exam Eyes General: appearance normal, both eyes and all related structures Neck Neck: Yes normal visual inspection Resp Effort & Inspection: normal respiratory effort, able to speak in complete sentences, no tracheal deviation and symmetric chest movement Cardio Jugular venous distension: no JVD GI Auscultation: normal bowel sounds Neuro General: patient oriented x3 Gait exam (Neuro): Normal gait present Psych Appearance: grossly normal Mental Status: mental status grossly normal Speech and movement: Normal speech and movement present Affect: normal affect Attitude: cooperative Thought process: Normal thought process present Thought content: Normal thought content present Insight: Good insight present (Psych) Judgement: Good judgement present (Psych) Results Reviewed Results Reviewed: CBC: / WNL CMP: / WNL (includes LFTs, kidney fxn) TSH: / Normal HIV Ag/Ab: / Negative Hepatitis panel: / All negative; pt immune to Hep B Chest X-ray: / NAD Celiac serology: / Negative for celiac dz Inflammatory markers: / Normal Fecal calprotectin: / elevated at 1440 IBD genetic marker: / Supportive of UC ( see scanned lab reports) Date of Service: 02/16/25 Procedure(s): XR chest 2V Accession Number(s): [id number] cc: Ne Schmidt PRESSFITTER~ EXAMINATION: XR CHEST 2 VIEWS HISTORY: R63.4 - Abnormal weight loss COMPARISON: There are no prior studies available for comparison. FINDINGS: PA and lateral views of the chest are submitted. The lungs are expanded and clear. There is no pleural effusion, pneumothorax, or pulmonary vascular congestion. The heart is normal in size. The bones are intact. XR/XR chest 2V IMPRESSION: Normal examination of the chest. Assessment & Plan Assessment & Plan (1) Inflammatory bowel disease: Code(s): K52.9 - Noninfective gastroenteritis and colitis, unspecified Category: Medical Plan: presumed IBD, now more likely UC by lab and genetic marker. Sx control w/ ongoing dietary adjustments; continued monitoring until colonoscopy confirms dx. Additional Testing: - Colonoscopy w/ bx (04/10/2025) for definitive dx and histologic grading. Medications: - No current GI Rx; hold on initiation pending scope. Lifestyle Recommendations: - Continue low-residue, lactose-reduced diet, no milk or caffeine; maintain hydration. - Education on colonoscopy prep provided verbally and in writing; highlighted campoverde steps for compliance. - Advised use of evidence-based dietary info only. Referrals / Coordination of Care: - Surgery/Endo team will contact pre-procedure; no new referrals. Follow-Up Plan: - F/u visit scheduled 04-27-2025 to review colonoscopy (scope + bx) and full pathology, adjust plan as needed. Interim portal contact for sx flares/concern. Plan Follow-up colonoscopy scheduled or sooner as needed Time: I spent a total of 23 minutes on the date of encounter which includes: Preparing to see the patient (reviewed previous documentation, test results and medical history) Performing a medically appropriate exam and/or evaluation Ordering medications, tests, and procedures Documenting clinical information in the health record Coding Level of Care Code Established Pt Est Pt Level 3 (67830) Patient Type Established Diagnoses Inflammatory bowel disease K52.9
[2025-04-05 07:51] VITALS: BP 99/68; PULSE 85; O2SAT 96; BMI 20.1
== END 2025-04-05 08:38 | disposition home or self-care (01) ==
LOC: HO.HGI 07:46
PROVIDERS: Visit Provider Nurse Practitioner Family
DX: K52.9 Noninfective gastroenteritis and colitis, unspecified (principal)
CPT/HCPCS: 99213

== ENCOUNTER 2025-04-10 08:16 | Day surgery (SDC) | payer OTHER, SELFPAY ==
--- OUTSIDE RECORDS SUMMARY | 2025-03-31 06:09 | XMS_ITS | Encounter Summary ---
Author Organization [facility] Address [address] [place] [address] Phone Care Team Providers Care Basket Weaver Name Role Phone Aida Short MD Primary Care Provider [phone] Encounter Details Date Type Department Care Team (Late st Contact Info) Description 02/17/2014 Documentation [facility] Family Medicine [address] [place] [address] Family Medicine, Physician [address] [place], [place] [address] Social History Tobacco Use Types Packs/Day Years [...] on filedocumented in this encounter Care Teams Basket Weaver Relationship Specialty Start Date End Date Aida Short MD [address] [place] [address] PCP - General 02/20/17 10/21/22 documented as of this encounter
--- OUTSIDE RECORDS SUMMARY | 2025-03-31 06:09 | XMS_ITS | Encounter Summary ---
Author Organization [facility] Address [address] [place] [address] Phone Care Team Providers Care Sheet Metal Helper Name Role Phone Aida Short MD Primary Care Provider [phone] Encounter Details Date Type Department Care Team (Late st Contact Info) Description 02/26/2017 Conversion Encounter [facility] [address] [place] [address] Social History Tobacco Use Types Packs/Day Years [...] on filedocumented in this encounter Care Teams Sheet Metal Helper Relationship Specialty Start Date End Date Aida Short MD [address] [place] [address] PCP - General 02/20/17 10/21/22 documented as of this encounter
--- OUTSIDE RECORDS SUMMARY | 2025-03-31 06:09 | XMS_ITS | Clinical Summary ---
Author Organization 175 [facility] Address [address] [place] [address] Phone Care Team Providers Care Computer Laboratory Technician Name Role Phone Kathy Oliveira MD Primary Care Prov ider Allergies Active Allergy Reactions Criticality Noted Date Comments Penicillin V Hives 03/02/2014 Medications hydrOXYzine HCL (ATARAX) 25 mg tablet Take 1 tablet (25 mg total) by mouth 2 (two) times a day. 60 tablet 1 12/21/19 25 Active Gavilax 17 gram/dose oral powder MIX AND DRINK 238 G BY MOUTH ONCE PER COLONOSCOPY PREP INSTRUCTIONS 02/16/20 25 Active Laxative, bisacodyl, 5 mg EC tablet TAKE 4 TABLETS BY MOUTH ONCE PRE COLONOSCOPY INSTRUCTIONS 02/16/20 25 Active nicotine (NICODERM CQ) 14 mg/[address] 1 Patch onto the skin daily for 60 days. 09/11/19 23 025 Discontinued(N on-compliance) ondansetron (ZOFRAN) 4 mg tablet Take 1 Tablet by mouth every 12 hours as needed for Nausea 025 Discontinued(N on-compliance) pantoprazole (PROTONIX) 40 mg EC tablet Take 1 tablet (40 mg total) by mouth 1 (one) time each day. Take in am on empty stomach wait 30 mins and then eat to activate the medication 30 each 11 06/14/20 24 025 Discontinued psyllium (METAMUCIL) 3.4 gram packet Take 1 packet by mouth 1 (one) time each day. 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 [place] BREAST LUMPECTOMY 08/15/2014 Right [...] drink = 0.6 oz pur e alcohol) Housing Instability Answer Date Recorde d Are you worried that in the next 2 months you may not have stable housing? No 03/14/2025 Food Access & Nutrition Answer Date Rec orded Do you have access to a vari ety of food including fruits and vegetables? Yes 03/14/2025 Health Literacy Answer Date Recorded How often do you need to hav e someone help you when you read instructions, pamphlets, or other written material from your doctor or pharmacy? Never 03/14/2025 Caregiver: How often do you need to have someone help you when you read instructions, pamphlets, or other written material from your doctor or pharmacy? Not on file 03/14/2025 Financial Risk Answer Date Recorded How hard is it for you to pa y for the very basics like food, housing, medical care, and air conditioning / heating? Not very hard 03/14/2025 Transportation Answer Date Recorded Has the lack of transportati on kept you from meetings, work, or from getting things needed for daily living? No Has the lack of transportati on kept you from medical appointments or from getting medications? No 03/14/2025 Social Isolation Answer Date Recorded How often do you feel lonely or isolated from th ose around you? Never 03/14/2025 Food Risk Answer Date Recorded Within the past 12 months we worried whether our food would run out before we got money to buy more. Never true 03/14/2025 Within the past 12 months th e food we bought just didn't last and we didn't have money to get more. Never true 03/14/2025 Dependent Care Answer Date Recorded Do you need help finding or paying for care for your loved ones. For example, child and family counselor or elderly care for an older adult? No 03/14/2025 Education Answer Date Recorded Do you think completing more education or training, like finishing a GED, going to college, or learning a trade, would be helpful for you? No 03/14/2025 Employment and Income Answer Date Recor ded During the last four weeks, have you been actively looking for work? No 03/14/2025 Living Situation Answer Date Recorded What is your living situation? 0 03/14/2025 Comments No Sex and Gender Information Value Date Recorded Sex Assigned at Not on file Legal Sex Female 10:22 PM EST Gender Identity Not on file Sexual Orientation Not on file Obstetrics History Last Filed Vital Signs Vital Sign Reading Time Taken Comments Blood Pressure 102/70 03/14/2025 9:41 AM EDT Pulse 90 03/14/2025 9:41 AM EDT Temperature 36.4 C (97.6 F) 03/14/2025 9:41 AM EDT Respiratory Rate 14 03/14/2025 9:41 AM EDT Oxygen Saturation 99% 03/14/2025 9:41 AM EDT Inhaled Oxygen Concentration - - Weight 54 kg (119 lb) 03/14/2025 9:41 AM EDT Height 165.1 cm (5' 5 ) 03/14/2025 9:41 AM EDT Body Mass Index 19.8 03/14/2025 9:41 AM EDT Plan of Treatment Upcoming Encounters Date Type Department Care Team (Late st Contact Info) Description 09/11/2025 2:00 PM EST Office Visit Adult Medicine [address] [phone] Kathy Oliveira MD [address] [place] [phone] Health Maintenance Due Date Last Done Comments Pneumococcal Vaccine: Pediatrics (0 to 5 Years) and At-Risk Patients (6 to 49 Years) (1 of 2 - PCV) 2009 Cervical Cancer Screening: Pap Smear 09/02/2020 09/02/2017, 09/02/2017 HIV Screening 06/21/2022 Hepatitis C Screening 06/21/2022 Influenza Vaccine (#1) 2025 05/14/2021, 2020 Social Influencers of Health Screening 03/14/2026 03/14/2025 DTaP,Tdap,and Td Vaccines (9 - Td or Tdap) 03/07/2029 03/07/2019, 02/24/2007, 2001, Additional history exists Cholesterol Screening (Lipid Panel) 04/29/2029 04/29/2024, 04/29/2024 HIB Vaccines Completed 07/22/1991, 10/11, 1990, Additional history exists IPV Vaccines Completed 04/11/1994, 02/1992, 07/22/1991, Additional history exists MMR Vaccines Completed 04/07/1995, 07/22/1991 Hepatitis B Vaccines Completed 09/16/2001, 05/17/2001, 2001 Meningococcal ACWY Vaccine Completed 02/24/2007 HPV Vaccines Completed 08/31/2007, 04/12, 02/24/2007 COVID-19 Vaccine Discontinued 03/02/2021, 02/02/2021 Depression Screening Completed 03/14/2025 Hepatitis A Vaccines Aged Out No long [...] to Health Maintenance Insurance [employer] Care Teams Computer Laboratory Technician Relationship Specialty Start Date End Date Kathy Oliveira MD [address] [place] [phone] PCP - General Internal Medicine 02/10/22
--- OUTSIDE RECORDS SUMMARY | 2025-03-31 06:09 | XMS_ITS | Encounter Summary ---
Author Organization [facility] Address [address] [place] [address] Phone Care Team Providers Care Elementary Principal Name Role Phone Aida Short MD Primary Care Provider [phone] Encounter Details Date Type Department Care Team (Late st Contact Info) Description 05/01/2011 Documentation [facility] Family Medicine [address] [place] [address] Family Medicine, Physician [address] [place], [place] [address] Social History Tobacco Use Types Packs/Day Years [...] on filedocumented in this encounter Care Teams Elementary Principal Relationship Specialty Start Date End Date Aida Short MD [address] [place] [phone] PCP - General 02/20/17 10/21/22 documented as of this encounter
--- OUTSIDE RECORDS SUMMARY | 2025-03-31 06:09 | XMS_ITS | Encounter Summary ---
Author Organization [facility] Address [address] [place] [address] Phone Care Team Providers Care Portfolio Strategist Name Role Phone Aida Short MD Primary Care Provider [phone] Encounter Details Date Type Department Care Team (Late st Contact Info) Description 02/10/2014 Documentation [facility] [place] Family Medicine [address] [place] [address] Family Medicine, Physician [address] [place], [place] [id number] Social History Tobacco Use Types Packs/Day Years [...] on filedocumented in this encounter Care Teams Portfolio Strategist Relationship Specialty Start Date End Date Aida Short MD [address] [place] [address] PCP - General 02/20/17 10/21/22 documented as of this encounter
--- OUTSIDE RECORDS SUMMARY | 2025-03-31 06:09 | XMS_ITS | Clinical Summary ---
Author Organization [facility] Address [address] [place] [address] Phone Care Team Providers Care Entrepreneurship Program Director Name Role Phone Unavailable Primary Care Provider Unavailabl e Immunizations Immunization Administration Dates Next Due DTP 04/11/1994, 2,1990,08/19,1990 HPV, Quadrivalent 08/31/2007,04/28/2007,02/25/20 07 Hep B, ped/adol 09/16/2001,05/17/2001,2001 Hib (PRP-T) 07/22/1991, 1,1990,06/23 IPV 04/11/1994, 2,1990,06/23 MMR 04/07/1995,07/22/1991 Meningococcal Conj (Menactra) MCV4P 02/24/2007 Td (adult) (MBL), 2 Lf tetan us toxoid, PF, adsorbed 2001 Tdap 02/24/2007 Family History Relation Name Status Comments Brother 1 Alive Brother: Alive and well, Alive and well Brother 2 Alive Brother: Alive and well, Alive and well Father Alive Father: Alive a nd well Mother Alive Mother: Alive a nd well Other Family history of ADD/ADHD Social History Tobacco Use Types Packs/Day Years Used Date Smoking Tobacco: Never Assessed Comments Unknown Sex and Gender Information Value Date Recorded Sex Assigned at Not on file Legal Sex Female 4:36 PM EDT Gender Identity Not on file Sexual Orientation Not on file Last Filed Vital Signs Vital Sign Reading Time Taken Comments Blood Pressure - - Pulse - - Temperature 36.9 C (98.5 F) 04/30/2011 12:00 AM EDT Respiratory Rate - - Oxygen Saturation - - Inhaled Oxygen Concentration - - Weight 49.4 kg (109 lb) 04/30/2011 12:00 AM EDT Height - - Body Mass Index - - Plan of Treatment Health Maintenance Due Date Last Done Comments Varicella Vaccines (1 of 2 - 13+ 2-dose series) 2003 DTaP,Tdap,and Td Vaccines (7 - Td or Tdap) 02/24/2017 02/24/2007, 2001, 04/11/1994, Additional history exists Influenza Vaccines (#1) 2025 COVID-19 Vaccine ( season) 2025 HIB Vaccines Completed 07/22/1991, 10/11, 1990, Additional history exists IPV Vaccines Completed 04/11/1994, 02/1992, 1990, Additional history exists MMR Vaccines Completed 04/07/1995, 07/22/1991 Hepatitis B Vaccines Completed 09/16/2001, 05/17/2001, 2001 Meningococcal Vaccine Completed 02/24/2007 HPV Vaccines Completed 08/31/2007, 04/12, 02/24/2007 Hepatitis A Vaccines Aged Out No long er eligible based on patient's age to complete this topic Men B Vaccine Aged Out No longer elig ible based on patient's age to complete this topic Pneumococcal Vaccine Aged Out No long er eligible based on patient's age to complete this topic
--- NOTE | 2025-04-06 10:30 | HO.ANESPROP2 ---
Documented by User: Monique Acosta NP 04/06/25 10:30 HPI - Anesthesia Eval Consult details Narrative: 34 yr old female for upper endoscopy, colonoscopy [facility] Active Problems Active Problems: All Active Problems Inflammatory bowel disease (Acute) Elevated fecal calprotectin (Acute) Hemorrhoid (Acute) Blood in stool (Acute) Unintentional weight loss (Acute) Diarrhea (Acute) Past Medical History Medical History Inflammatory bowel disease Elevated fecal calprotectin Hemorrhoid Blood in stool Unintentional weight loss Diarrhea Family History Family History Mother Thyroid cancer Diabetes Father Alcoholic Brother Depressed Alcoholic Heroin abuse Maternal Grandmother Diabetes Maternal Grandfather Stroke Paternal Grandfather Parkinson disease Paternal Grandmother Hx of schizophrenia Surgical History Surgical History H/O vaginal surgery History of lumpectomy of right breast Social History Social History Alcohol intake: current Alcohol intake frequency: holidays/special occasions only Patient Tobacco Use Status: Former Tobacco user Substance Use Type: Marijuana Substance Use Frequency: Daily Have you been hit, kicked, punched, or otherwise hurt by someone within the past year? If so, by whom?: No Are you DNR?: No Advance Directives: No Advance Directives Information Provided: Yes FDLMP: 03/28/25 Poor oral hygiene: No Meds Allergies Allergy/AdvReac Type Severity Reaction Status Date / Time Penicillins (PENICILLINS) Allergy Intermediate HIVES Verified 04/10/25 09:03 Home Medications ?Medication ?Instructions ?Recorded ?Confirmed ?Last Taken ?Type hydroxyzine HCl 25 mg tablet 25 mg PO BID 02/15/25 04/10/25 Unknown History Documented by User: Rikki Kang MD 04/10/25 10:08 [facility] Past Medical History Medical History Inflammatory bowel disease Elevated fecal calprotectin Hemorrhoid Blood in stool Unintentional weight loss Diarrhea Patient : No Family History Family History Mother Thyroid cancer Diabetes Father Alcoholic Brother Depressed Alcoholic Heroin abuse Maternal Grandmother Diabetes Maternal Grandfather Stroke Paternal Grandfather Parkinson disease Paternal Grandmother Hx of schizophrenia Family history of problems with anesthesia: No Surgical History Surgical History H/O vaginal surgery History of lumpectomy of right breast History of Problems with Anesthesia: No Social History Social History Alcohol intake: current Alcohol intake frequency: holidays/special occasions only Patient Tobacco Use Status: Former Tobacco user Substance Use Type: Marijuana Substance Use Frequency: Daily Have you been hit, kicked, punched, or otherwise hurt by someone within the past year? If so, by whom?: No Are you DNR?: No Advance Directives: No Advance Directives Information Provided: Yes FDLMP: 03/28/25 Poor oral hygiene: No Meds Allergies Allergy/AdvReac Type Severity Reaction Status Date / Time Penicillins (PENICILLINS) Allergy Intermediate HIVES Verified 04/10/25 09:03 Home Medications ?Medication ?Instructions ?Recorded ?Confirmed ?Last Taken ?Type hydroxyzine HCl 25 mg tablet 25 mg PO BID 02/15/25 04/10/25 Unknown History Exam Airway Mallampati Class: I TM Dist: >3cm Neck ROM: Full Loose/Missing/Broken Teeth: No Heart: ok Lungs: ok Assessment and Plan Assessment Anesthesia Assessment: Anesthesia Plan Discussed and Chart Reviewed Final Anesthetic Review Family History of Problems with Anesthesia: No History of Problems with Anesthesia: No NPO: Yes ASA Class: II Final Preanesthetic Review: No Changes in Pt Med Stat, Meds/Allgs Chart Reviewed, Consent Obtained/Reviewed and Anes Risks/Benef Reviewed Patient Risk: Low Procedure Risk: Intermediate Anesthetic Plan Anesthetic Plan: Agree w/ Assess. and Plan and TIVA Disposition: Standard PACU
[2025-04-06 12:43] VITALS: BMI 20.1
[2025-04-10 09:01] VITALS: BMI 20.1
[2025-04-10 09:03] LABS: UPreg QC Valid YES
[2025-04-10] MEDS: Lactated Ringers 1,000 ML 100 ML IVCONT (09:05)
[2025-04-10 09:12] VITALS: BP 119/75; PULSE 100; RESP 18; TEMP 36.7; O2SAT 100
--- NOTE | 2025-04-10 09:35 | MHC.SHP ---
Pre-Procedural Eval Section A - 24 Hr Update-Section A only Date of Service: 04/10/25 The patient is an INPATIENT: No Changes since office visit: Yes Patient answered all questions; No Cold of Flu in the past 2 weeks, No New Medical Problems and No Changes in Medication The patient has been examined within 24 hours of the surgical procedure. The History & Physical has been completed within 30 days and I have reviewed it.: Yes Section B - Complete if H&P > 30 days Chief Complaint: diarrhea, rectal bleeding, abd pain, pancolitis Allergies: Allergies Allergy/AdvReac Type Severity Reaction Status Date / Time Penicillins (PENICILLINS) Allergy Intermediate HIVES Verified 04/10/25 09:03 Plan Diagnosis/Plan: Unchanged I have reviewed the history and physical and performed a pertinent physical examination on my patient. No changes have occurred unless specified. Time Spent With Patient Time: Total time managing care of this patient today ____ minutes.
--- NOTE | 2025-04-10 10:11 | HO.OPN-COLON ---
Colonoscopy Operative Note Operative Note Date of Service: 04/10/25 Narrative: FLEXIBLE TRANSORAL UPPER GASTROINTESTINAL ENDOSCOPY WITH BIOPSIES AND COLONOSCOPY TILL CECUM WITH BIOPSIES Pre-op diagnosis: chronic diarrhea, abdominal pain, rectal bleeding, pancolitis Post-op diagnosis: Gastritis, left sided colitis, Diverticulosis, hemorrhoids Endoscopist:? Terrence Biggs MD Anesthesia:?MAC UPPER ENDOSCOPY Consent: Indications for the procedure and potential complications of bleeding, perforation, reaction to medications and missed diagnosis were discussed with the patient and informed consent was obtained. Instrument: Olympus GIF H 190 mid size upper endoscope Monitoring: Vital signs and clinical assessment, continuous EKG monitoring, Pulse oximetry, Carbon Dioxide monitoring and blood pressure monitoring were done throughout the procedure. Procedure: The patient was placed in the left lateral decubitis position and pre-procedure medications were administered and a bite block was placed. The endoscope was inserted into the mouth and advanced under direct vision to the third part of duodenum. A careful inspection was made as the upper endoscope was withdrawn including a retroflexed examination of the proximal stomach; Findings and interventions are described below. Findings: Larynx: Normal Esophagus: GE junction at 36 cms. No esophagitis or Ayers's. Stomach: Mild gastric antral erythema - biopsies were obtained from the antrum. Grade 2 flap valve on retroflexed examination of the cardia. Duodenum: Normal bulb and descending duodenum Biopsies were obtained from descending duodenum to check for celiac sprue Intervention: Biopsies as noted above COLONOSCOPY PROCEDURE NOTE Instrument: Olympus PCF H 190 L variable stiffness pediatric colonoscope Monitoring: Vital signs and clinical assessment, intermittent blood pressure monitoring, continuous EKG monitoring, Pulse oximetry and Carbon Dioxide monitoring were done throughout the procedure. Please see anesthesia flowsheet. Colon withdrawl time was 17 minutes. Procedure: The patient was placed in the left lateral decubitis position and pre-procedure medications were administered. After a digital rectal examination of the ano-rectum, the video colonoscope was inserted into the rectum and advanced through the colon to the cecum. The colonoscope was slowly withdrawn in a retrograde panoramic fashion and the colon mucosa was carefully examined including a retroflexed view of the rectum. Findings and interventions are described below. Procedure Difficulty: Colon was long and there was some loop formation Findings: Terminal Ileum: Distal 3-4 cms was examined and appeared normal - biopsies were obtained Cecum: Friable mucosa with a few aphthoid ulcers - biopsies were obtained Ascending Colon: Friable mucosa throughout the entire colon - biopsies were obtained Transverse Colon: Friable mucosa throughout the entire colon - biopsies were obtained Descending Colon: Friable mucosa throughout the entire colon. Sigmoid Colon: Scattered 3-4 mm aphthoid ulcers from 0 to 55 - multiple biopsies were obtained. Moderate diverticulosis Rectum: Scattered 3-4 mm aphthoid ulcers from 0 to 55 - multiple biopsies were obtained. Ano-rectum: Moderate internal hemorrhoids and perianal skin tags Colon preparation: Good after some irrigation. [place] Bowel Preparation Scale Right colon; 2 Transverse colon: 2 Left colon; 2 (0 = Unprepared colon segment with mucosa not seen due to solid stool that cannot be cleared. 1 = Portion of mucosa of the colon segment seen, but other areas of the colon segment not well seen due to staining, residual stool and/or opaque liquid. 2 = Minor amount of residual staining, small fragments of stool and/or opaque liquid, but mucosa of colon segment seen well. 3 = Entire mucosa of colon segment seen well with no residual staining, small fragments of stool or opaque liquid) Impression and Post Procedure Diagnosis: Endoscopy Findings: ESOPHAGUS: Normal STOMACH: Mild gastric antral erythema DUODENUM: Normal - biopsied to check for celiac sprue. Colonoscopy Findings: Scattered 3-4 mm aphthoid ulcers from 0 to 55 - multiple biopsies were obtained. Moderate diverticulosis seen in the sigmoid colon Moderate hemorrhoids on retroflexed exam. Plan: Pt has a FU appointment on 04/27/25 with Ne Schmidt NP Flexible sigmoidoscopy or fecal calprotectin in 6 months to confirm resolution of colitis and colonoscopy in 5 years for FU of ulcerative colitis. A summary of above findings and relevant handouts were given to the patient. BIOPSIES SHOWED: A. Small bowel, biopsy: Small intestinal mucosa within normal limits. B. Stomach, antrum, biopsy: Antral-type and oxyntic mucosa with mild chronic inactive inflammation; no Helicobacter organisms seen. C. Terminal ileum, biopsy: Ileocolonic mucosa within normal limits. D. Cecum, biopsy: Colonic mucosa within normal limits. E. Colon, ascending, biopsy: Colonic mucosa with mild crypt disarray. F. Colon, transverse, biopsy: Colonic mucosa with mild crypt disarray. G. Colon, sigmoid, biopsy: Chronic, moderately active, colitis. H. Rectum, biopsy: Chronic active proctitis. Comment: No dysplasia or granulomata are identified. Diagnostic morphologic features of celiac disease are not seen Pt informed of biopsy results and started on Lialda 2.5 grams daily. She was placed on the procedure recall list for a Flex Sig in 6 months and a colonoscopy in 5 years
[2025-04-10 11:12] VITALS: BP 101/69; RESP 18; TEMP 36.3; O2SAT 100
[2025-04-10 11:27] VITALS: BP 109/73; PULSE 68; RESP 18; TEMP 36.3; O2SAT 100
== END 2025-04-10 12:24 | disposition home or self-care (01) ==
PROVIDERS: Nurse Practitioner; Visit Provider Internal Medicine Gastroenterology
PROC: (CPT 45380; principal; 2025-04-10 10:10)
DX: K62.5 Hemorrhage of anus and rectum (principal); K57.30 Diverticulosis of large intestine without perforation or abscess without bleeding; K64.8 Other hemorrhoids; K64.4 Residual hemorrhoidal skin tags; K51.00 Ulcerative (chronic) pancolitis without complications; K51.20 Ulcerative (chronic) proctitis without complications; K29.50 Unspecified chronic gastritis without bleeding; Z79.899 Other long term (current) drug therapy; Z88.0 Allergy status to penicillin; Z98.890 Other specified postprocedural states; Z87.891 Personal history of nicotine dependence
CPT/HCPCS: 45380; 43239; 81025; 88305; 88313; 88342; J2003; J2704

== ENCOUNTER → 2025-04-10 08:16 | Outpatient (BNV) | payer OTHER, SELFPAY | PROVIDERS: Visit Provider Internal Medicine Gastroenterology | DX: R10.9 Unspecified abdominal pain (principal); K29.70 Gastritis, unspecified, without bleeding; K52.9 Noninfective gastroenteritis and colitis, unspecified; K57.90 Diverticulosis of intestine, part unspecified, without perforation or abscess without bleeding; K64.8 Other hemorrhoids | CPT/HCPCS: 43239; 45380 ==

== ENCOUNTER 2025-04-27 11:15 | Outpatient (AMB) | payer OTHER, SELFPAY ==
--- NOTE | 2025-04-27 11:21 | A.OFFVIS_ITS ---
Vital Signs 04/27/25 11:22 Height 5 ft 5 in Weight 120 lb BMI 20.0 BP 97/56 L Blood Pressure Location Lt brachial Position Sitting Pulse 86 Pulse Oximetry (%) 99 Oxygen Delivery Method Room Air Intake Visit Reasons: S/p egd/colon Intake Note: Patient follow up for EGD/Colonoscopy results. Patient cc: a little of rectal bleeding on and off, denies any other GI issues for tody. Test Desk Supervisor Required: No Accompanied by: Self / Same As Patient Allergies Penicillins (PENICILLINS) Allergy (Intermediate, Verified 04/27/25 11:21) HIVES HPI HPI S/p egd/colon: Details: Patient is a 34-year-old female with PMH of anxiety. FU for new dx colitis (UC pattern), review colonoscopy, ongoing rectal/hemorrhoidal sx, and initiation of mesalamine. Pt reports BM volume has increased in the last week since starting PO mesalamine last ; stool form remains normal, not loose. Rectal bleeding recurred twice, minimal, after mesalamine initiation?previously resolved. Hemorrhoids remain prominent and bothersome, >2 yrs, no new pain or prolapse; all topical OTC agents/sitz baths trialed previously with only partial relief and no recent topical Rx. No abd pain, fever, or signs of diverticulitis. Denies new upper GI sx (no heartburn, dyspepsia, nausea). No recent hospitalizations or urgent care visits. Pt adherent to mostly clean/organic dietary modification and maintaining lifestyle changes; no current dietary fiber restrictions. Resumed physical activity cautiously; inquires re: safe level. No difficulty tolerating PO meds. [facility] Medical History (Updated 04/27/25 @ 13:00 by Ne Schmidt CNP) Diverticulosis Gastritis Inflammatory bowel disease Elevated fecal calprotectin Hemorrhoid Blood in stool Unintentional weight loss Diarrhea Surgical History History of esophagogastroduodenoscopy (EGD) Hx of colonoscopy H/O vaginal surgery History of lumpectomy of right breast Family History Mother Thyroid cancer Diabetes Father Alcoholic Brother Depressed Alcoholic Heroin abuse Maternal Grandmother Diabetes Maternal Grandfather Stroke Paternal Grandfather Parkinson disease Paternal Grandmother Hx of schizophrenia Social History Alcohol intake: current Alcohol intake frequency: holidays/special occasions only Patient Tobacco Use Status: Former Tobacco user Substance Use Type: Marijuana Review of Systems Const Reports as per HPI ENT Reports as per HPI Card Reports as per HPI Resp Reports as per HPI GI Reports as per HPI Reports as per HPI Physical Exam Vital Signs: Last Vital Signs Pulse 86 04/27/25 11:22 BP 97/56 L 04/27/25 11:22 Pulse Ox 99 04/27/25 11:22 Oxygen Delivery Method Room Air 04/27/25 11:22 BMI result Body Mass Index 20.0 Const General: healthy appearing, no acute distress and well developed Nutritional Appearance: average body habitus Orientation/consciousness: patient oriented x3 HEENT Head: Yes normal to inspection, Yes normocephalic and Yes atraumatic Face and sinus: Yes normal facial exam Eyes General: appearance normal, both eyes and all related structures Neck Neck: Yes normal visual inspection Resp Effort & Inspection: normal respiratory effort, able to speak in complete sentences, no tracheal deviation and symmetric chest movement Cardio Jugular venous distension: no JVD GI Rectal Exam - Female: visual inspection normal, normal sphincter tone, External hemorrhoid(s) present, No Internal hemorrhoid(s) present, No Rectal prolapse, No fecal impaction, No Lesions present (GI), No Anal fissure(s) present, No Laceration(s) present (GI), No Excoriation present (GI), No mass and No tenderness Neuro General: patient oriented x3 Gait exam (Neuro): Normal gait present Psych Appearance: grossly normal Mental Status: mental status grossly normal Speech and movement: Normal speech and movement present Affect: normal affect Attitude: cooperative Thought process: Normal thought process present Thought content: Normal thought content present Insight: Good insight present (Psych) Judgement: Good judgement present (Psych) Results Reviewed Results Reviewed: Operative Note Date of Service: 04/10/25 Narrative: FLEXIBLE TRANSORAL UPPER GASTROINTESTINAL ENDOSCOPY WITH BIOPSIES AND COLONOSCOPY TILL CECUM WITH BIOPSIES Pre-op diagnosis: chronic diarrhea, abdominal pain, rectal bleeding, pancolitis Post-op diagnosis: Gastritis, left sided colitis, Diverticulosis, hemorrhoids Endoscopist: Terrence Biggs MD UPPER ENDOSCOPY Procedure: The patient was placed in the left lateral decubitis position and pre-procedure medications were administered and a bite block was placed. The endoscope was inserted into the mouth and advanced under direct vision to the third part of duodenum. A careful inspection was made as the upper endoscope was withdrawn including a retroflexed examination of the proximal stomach; Findings and interventions are described below. Findings: Larynx: Normal Esophagus: GE junction at 36 cms. No esophagitis or Ayers's. Stomach: Mild gastric antral erythema - biopsies were obtained from the antrum. Grade 2 flap valve on retroflexed examination of the cardia. Duodenum: Normal bulb and descending duodenum Biopsies were obtained from descending duodenum to check for celiac sprue Intervention: Biopsies as noted above COLONOSCOPY PROCEDURE NOTE Procedure: The patient was placed in the left lateral decubitis position and pre-procedure medications were administered. After a digital rectal examination of the ano-rectum, the video colonoscope was inserted into the rectum and advanced through the colon to the cecum. The colonoscope was slowly withdrawn in a retrograde panoramic fashion and the colon mucosa was carefully examined including a retroflexed view of the rectum. Findings and interventions are described below. Procedure Difficulty: Colon was long and there was some loop formation Findings: Terminal Ileum: Distal 3-4 cms was examined and appeared normal - biopsies were obtained Cecum: Friable mucosa with a few aphthoid ulcers - biopsies were obtained Ascending Colon: Friable mucosa throughout the entire colon - biopsies were obtained Transverse Colon: Friable mucosa throughout the entire colon - biopsies were obtained Descending Colon: Friable mucosa throughout the entire colon. Sigmoid Colon: Scattered 3-4 mm aphthoid ulcers from 0 to 55 - multiple biopsies were obtained. Moderate diverticulosis Rectum: Scattered 3-4 mm aphthoid ulcers from 0 to 55 - multiple biopsies were obtained. Ano-rectum: Moderate internal hemorrhoids and perianal skin tags Colon preparation: Good after some irrigation. [place] Bowel Preparation Scale Right colon; 2 Transverse colon: 2 Left colon; 2 Impression and Post Procedure Diagnosis: Endoscopy Findings: ESOPHAGUS: Normal STOMACH: Mild gastric antral erythema DUODENUM: Normal - biopsied to check for celiac sprue. Colonoscopy Findings: Scattered 3-4 mm aphthoid ulcers from 0 to 55 - multiple biopsies were obtained. Moderate diverticulosis seen in the sigmoid colon Moderate hemorrhoids on retroflexed exam. Plan: Pt has a FU appointment on 04/27/25 with Ne Schmidt NP Flexible sigmoidoscopy or fecal calprotectin in 6 months to confirm resolution of colitis and colonoscopy in 5 years for FU of ulcerative colitis. A summary of above findings and relevant handouts were given to the patient. PATHOLOGY: A. Small bowel, biopsy: Small intestinal mucosa within normal limits. B. Stomach, antrum, biopsy: Antral-type and oxyntic mucosa with mild chronic inactive inflammation; no Helicobacter organisms seen. C. Terminal ileum, biopsy: Ileocolonic mucosa within normal limits. D. Cecum, biopsy: Colonic mucosa within normal limits. E. Colon, ascending, biopsy: Colonic mucosa with mild crypt disarray. F. Colon, transverse, biopsy: Colonic mucosa with mild crypt disarray. G. Colon, sigmoid, biopsy: Chronic, moderately active, colitis. H. Rectum, biopsy: Chronic active proctitis. Comment: No dysplasia or granulomata are identified. Diagnostic morphologic features of celiac disease are not seen Clinical History Pre-Op Dx: Diarrhea, rectal bleeding, ABD pain, pancolitis Post-Op Dx: Upper: Gastritis Lower: Left side colitis, diverticulosis, hemorrhoids Pt informed of biopsy results and started on Lialda 2.5 grams daily. She was placed on the procedure recall list for a Flex Sig in 6 months and a colonoscopy in 5 years Date of Service: 02/16/25 Procedure(s): XR chest 2V Accession Number(s): [id number] cc: Ne Schmidt HEATER PLANER OPERATOR~ EXAMINATION: XR CHEST 2 VIEWS HISTORY: R63.4 - Abnormal weight loss COMPARISON: There are no prior studies available for comparison. FINDINGS: PA and lateral views of the chest are submitted. The lungs are expanded and clear. There is no pleural effusion, pneumothorax, or pulmonary vascular congestion. The heart is normal in size. The bones are intact. XR/XR chest 2V IMPRESSION: Normal examination of the chest. Assessment & Plan Assessment & Plan (1) Ulcerative colitis: Comment: 04/10/25 colonoscopy complete with good prep after irrigation-colitis (sigmoid), proctitis, aphthoid ulcers scattered through out, Moderate diverticulosis (sigmoid), Moderate hemorrhoids Code(s): K51.90 - Ulcerative colitis, unspecified, without complications Category: Medical Qualifiers: Ulcerative colitis location: other ulcerative colitis Digestive disease complication type: with rectal bleeding Qualified Code(s): K51.811 - Other ulcerative colitis with rectal bleeding Plan: Left sided, Stable. Early maintenance phase on mesalamine, increase BM volume; mild rectal bleeding likely hemorrhoidal vs mucosal fragility; needs ongoing monitoring. No acute flare. Additional testing: - Plan repeat CBC, LFTs in 3 months to monitor for mesalamine AE. - Stool calprotectin (ordered to complete in 6 months; for disease activity surveillance). Medications: - Mesalamine PO: Continue current dose, review for tolerance and lab monitoring. Indefinite maintenance; reassess after 6-12 months if stable. Lifestyle Recommendations: - Continue high-fiber/clean diet as tolerated. - Bowel hygiene, avoid constipation. - Safe to resume physical activity/boxing as tolerated?monitor for flares. - Provided educational handouts (ulcerative colitis, diet, bowel hygiene, exercise precautions). Referrals / Coordination of Care: - Release of info to PCP per pt request (pending documentation). Follow-Up Plan: - FU q3mo with labs/stool studies 1-2wks prior to appt. - Instructions to report new GI sx, rash, or med intolerance via portal. (2) Hemorrhoid: Code(s): K64.9 - Unspecified hemorrhoids Category: Medical Qualifiers: Hemorrhoid type: unspecified Qualified Code(s): K64.9 - Unspecified hemorrhoids Plan: Current Status: Chronic, large, non-thrombosed, bothersome (cosmetic and mild symptom burden), no prolapse or severe pain. OTC topicals/sitz baths trialed with incomplete relief. No recent prescription topicals. Additional testing: - None at this time. Medications: - Rx proctifoam (hydrocortisone 1%/pramoxine) topical, 15g tube, up to 5x/day PRN; 1 tube dispensed (cost discussed, discount card provided). - Continue sitz baths, toilet hygiene, avoid straining. Lifestyle Recommendations: - Maintain soft, formed stool; hydration emphasized. - Reinforce avoidance of prolonged sitting/straining. Referrals / Coordination of Care: - General surgery consult order placed (pt agreeable) for hemorrhoid management options/counseling regarding surgical and non-surgical interventions. Follow-Up Plan: - Monitor for clinical improvement; may escalate to procedural intervention if refractory or ? symptom burden. (3) Gastritis: Code(s): K29.70 - Gastritis, unspecified, without bleeding Category: Medical Qualifiers: Gastritis type: superficial Chronicity: chronic Gastritis bleeding: without bleeding Qualified Code(s): K29.30 - Chronic superficial gastritis without bleeding Plan: No current upper GI complaints, not warranting med at this time. Additional testing: - None unless new sx. Medications: - Pharmacy Student re: OTC H2RA (famotidine) PRN if dyspepsia/heartburn recurs. Lifestyle Recommendations: - Continue dietary vigilance; avoid triggers. Follow-Up: - Symptomatic management as needed. (4) Diverticulosis: Code(s): K57.90 - Diverticulosis of intestine, part unspecified, without perforation or abscess without bleeding Category: Medical Plan: Asymptomatic; incidental finding. No evidence of diverticulitis. Additional testing: - None needed unless sx. Medications: - None. Lifestyle Recommendations: - Diet as tolerated; no need to avoid seeds/nuts/popcorn per current evidence. - Emphasize high-fiber intake, regular hydration. Refer/Coordination: - None at this time. Follow-Up: - Routine monitoring. Plan Follow-up in 3 months or sooner as needed Time: I spent a total of 32 minutes on the date of encounter which includes: Preparing to see the patient (reviewed previous documentation, test results and medical history) Performing a medically appropriate exam and/or evaluation Ordering medications, tests, and procedures Documenting clinical information in the health record Orders: Orders Comprehensive Met. Panel 3 Months K51.90 - Ulcerative colitis, unspecified, without complications Calprotectin, Fecal 6 Months K51.90 - Ulcerative colitis, unspecified, without complications C Reactive Protein 3 Months K51.90 - Ulcerative colitis, unspecified, without complications Complete Blood Count Auto Diff 3 Months K51.90 - Ulcerative colitis, unspecified, without complications Referrals General Surgery Referral K64.9 - Unspecified hemorrhoids Medications: New hydrocortisone-pramoxine 1-1 % (Proctofoam HC) Apply to anal area, as needed, up to 5 times daily 1 appl [place] QID PRN 15 grams 0RF hemorrhoids Coding Level of Care Code Established Pt Est Pt Level 3 (81155) Patient Type Established Diagnoses Other ulcerative colitis with rectal bleeding K51.811 Ulcerative colitis location: other ulcerative colitis Digestive disease complication type: with rectal bleeding Hemorrhoids, unspecified hemorrhoid type K64.9 Hemorrhoid type: unspecified Chronic superficial gastritis without bleeding K29.30 Gastritis type: superficial Chronicity: chronic Gastritis bleeding: without bleeding Diverticulosis K57.90
[2025-04-27 11:22] VITALS: BP 97/56; PULSE 86; O2SAT 99
--- OUTSIDE RECORDS SUMMARY | 2025-04-27 14:25 | XMS_ITS | Encounter Summary ---
Author Organization [facility] Address [address] [place] [phone] Phone Care Team Providers Care Construction Equipment Operator Name Role Phone Aida Short MD Primary Care Provider Encounter Details Date Type Department Care Team (Late st Contact Info) Description 02/10/2014 Documentation [facility] [place] [address] [place] [address] Family Medicine, Physician [address], [place] [id number] Social History Tobacco Use Types Packs/Day Years [...] on filedocumented in this encounter Care Teams Construction Equipment Operator Relationship Specialty Start Date End Date Aida Short MD [address] [place] [id number] PCP - General 02/20/17 10/21/22 documented as of this encounter
--- OUTSIDE RECORDS SUMMARY | 2025-04-27 14:25 | XMS_ITS | Encounter Summary ---
Author Organization [facility] Address [address] [place] [phone] Phone Care Team Providers Care Sand Bobber Name Role Phone Aida Short MD Primary Care Provider [phone] Encounter Details Date Type Department Care Team (Late st Contact Info) Description 05/01/2011 Documentation [facility] Family Medicine [address] [place] [address] Family Medicine, Physician [address], [place] [address] Social History Tobacco Use Types Packs/Day Years [...] on filedocumented in this encounter Care Teams Sand Bobber Relationship Specialty Start Date End Date Aida Short MD [address] [place] [id number] PCP - General 02/20/17 10/21/22 documented as of this encounter
--- OUTSIDE RECORDS SUMMARY | 2025-04-27 14:25 | XMS_ITS | Clinical Summary ---
Author Organization [facility] Address [address] [place] [address] Phone Care Team Providers Care Workers Compensation Attorney Name Role Phone Kathy Oliveira MD Primary Care Prov ider Allergies Active Allergy Reactions Criticality Noted Date Comments Penicillin V Hives 03/02/2014 Medications hydrOXYzine HCL (ATARAX) 25 mg tablet Take 1 tablet (25 mg total) by mouth 2 (two) times a day. 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/2020 Lump in neck 11/21/2020 Encounters Date Type Department Care Team Description 03/14/2025 9:30 AM EDT Office Visit Adult Medicine [address] [phone] Cristin Hdz PA Chronic abdominal pain (Primary Dx); Encounter for screening involving social determinants of health (SDoH); Screening for depression from Last 3 Months Immunizations Immunization Administration Dates Next Due DTP 04/11/1994, 2,1990,08/19,1990 [id number] (Pentacel) 2mo to less than 5yo 07/22/1991,1990,1990,06/23 [...] ---- OTHER ----; COMMENT: vaginal reconstruction, labiaplasty, [facility] [place] BREAST LUMPECTOMY 08/15/2014 Right PROCEDURE: HISTORICAL BREAST [...] care for your loved ones. For example, early childhood worker or elderly care for an older adult? [...] Date Recorded What is your living situation? Unrecognized valu e 03/14/2025 Comments No Sex and Gender Information [...] 2:00 PM EST Office Visit Adult Medicine [address] [phone] Kathy Oliveira MD [address] [place] [address] Health Maintenance Due Date Last Done Comments [...] mg/dL Blood Venous blood specimen / Unknown us Historical Provider LAB BLOOD ORDERABLES Shannen l Result * Cervical Cancer Screening: HPV (09/02/2017) Pathologist [facility] Cervical Cancer Screening: HPV Abstracted, no interpretation us Historical Provider HEALTH MAINTENANCE Final Result from Last 3 Months or Most Recently Relevant to Health Maintenance Insurance [employer] Care Teams Workers Compensation Attorney Relationship Specialty Start Date End Date Kathy Oliveira MD [address] [place] [phone] PCP - General Internal Medicine 02/10/22
--- OUTSIDE RECORDS SUMMARY | 2025-04-27 14:25 | XMS_ITS | Encounter Summary ---
Author Organization [facility] Address [address] [place] [address] Phone Care Team Providers Care Tuckpointer Cleaner Caulker Name Role Phone Aida Short MD Primary Care Provider [phone] Encounter Details Date Type Department Care Team (Late st Contact Info) Description 02/26/2017 Conversion Encounter [facility] [place] [address] [place] [address] Social History Tobacco Use Types Packs/Day Years [...] on filedocumented in this encounter Care Teams Tuckpointer Cleaner Caulker Relationship Specialty Start Date End Date Aida Short MD [address] [place] [address] PCP - General 02/20/17 10/21/22 documented as of this encounter
--- OUTSIDE RECORDS SUMMARY | 2025-04-27 14:26 | XMS_ITS | Encounter Summary ---
Author Organization [facility] Address [address] [place] [address] Phone Care Team Providers Care Social Worker School Name Role Phone Aida Short MD Primary Care Provider [phone] Encounter Details Date Type Department Care Team (Late st Contact Info) Description 02/17/2014 Documentation [facility] [place] Family Medicine [address] [place] [address] Family Medicine, Physician [address] [place], [place] [address]111 Social History Tobacco Use Types Packs/Day Years [...] on filedocumented in this encounter Care Teams Social Worker School Relationship Specialty Start Date End Date Aida Short MD [address] [place] [address] PCP - General 02/20/17 10/21/22 documented as of this encounter
--- OUTSIDE RECORDS SUMMARY | 2025-04-27 14:26 | XMS_ITS | Clinical Summary ---
Author Organization [facility] Address [address] [place] [address] Phone Care Team Providers Care Director Of Compliance Name Role Phone Unavailable Primary Care Provider [...]
== END 2025-04-27 12:00 | disposition home or self-care (01) ==
LOC: HO.HGI 11:16
PROVIDERS: Visit Provider Nurse Practitioner Family
DX: K51.811 Other ulcerative colitis with rectal bleeding (principal); K64.9 Unspecified hemorrhoids; K29.30 Chronic superficial gastritis without bleeding; K57.90 Diverticulosis of intestine, part unspecified, without perforation or abscess without bleeding
CPT/HCPCS: 99213

== ENCOUNTER 2025-06-27 12:49 | Outpatient (REF) | payer OTHER, SELFPAY ==
[2025-06-27 22:37] LABS: Bacterial Vaginosis PCR POSITIVE (Negative); Candida Group PCR NOT DETECTED (Not Detect); Candida glab krusei PCR NOT DETECTED (Not Detect); Trichomonas vaginalis PCR NOT DETECTED (Not Detect)
[2025-06-27 23:08] LABS: CT PCR NOT DETECTED (Not Detect.); NG PCR NOT DETECTED (Not Detect.)
== END 2025-06-27 12:50 | disposition home or self-care (01) ==
LOC: HO.LNP 12:49
PROVIDERS: Visit Provider Advanced Practice Midwife
DX: Z01.419 Encounter for gynecological examination (general) (routine) without abnormal findings (principal); K51.811 Other ulcerative colitis with rectal bleeding; K57.90 Diverticulosis of intestine, part unspecified, without perforation or abscess without bleeding; Z12.39 Encounter for other screening for malignant neoplasm of breast; Z20.2 Contact with and (suspected) exposure to infections with a predominantly sexual mode of transmission
CPT/HCPCS: 81515; 87491; 87591; 87626; 88175

== ENCOUNTER 2025-06-27 12:49 | Outpatient (AMB) | payer OTHER, SELFPAY ==
--- NOTE | 2025-06-27 13:11 | MHC.OFFVIS ---
Vital Signs 06/27/25 13:14 Height 5 ft 5 in Weight 124 lb BMI 20.6 BP 102/62 Intake Visit Reasons: New patient Annual Intake Note: Per patient no concerns, last pap smear 5+ years ago, no concerns. Supervisor Alteration Workroom: Supervisor Alteration Workroom Present (Melanie) Accompanied by: Self / Same As Patient Allergies Penicillins (PENICILLINS) Allergy (Intermediate, Verified 06/27/25 13:13) HIVES Medication List - Last Reconciled 06/27/25 by Barbara Martinez CNM hydrocortisone-pramoxine 2.5-1 % 1 appl HI TID-QID PRN hydroxyzine HCl 25 mg PO BID mesalamine (Lialda) 2.4 grams (2 x 1.2 gram) PO DAILY 90 days Is last menstrual period known: Yes Last menstrual period: 06/23/25 Post menopausal: No Patient : No HPI HPI New patient Annual: Details: Patient is here for new pier hand helper annual exam. She has no pier hand helper concerns at all she has had challenges with gastrointestinal issues and this summer she was dealing with a lot of challenges with abdominal pain and diarrhea and blood in her stool. She has been seeing Gastroenterology and getting lots of tests and has been diagnosed with diverticulosis and ulcerative colitis which currently is being managed mostly with dietary changes which she think it thinks has made more of a difference then the medication she is on as well. She also has extremely large hemorrhoids which have resulted from all of the difficulties she had contemplated surgery but now is reconsidering that if she can avoid it. She gets regular periods which are getting a little shorter as she gets older and cause her no difficulty. She is not currently sexually active and the last time she was was a year and a month ago and she use a condom and if she became sexually active again would use a condom. [facility] Medical History Diverticulosis Gastritis Inflammatory bowel disease Elevated fecal calprotectin Hemorrhoid Blood in stool Unintentional weight loss Diarrhea Surgical History History of esophagogastroduodenoscopy (EGD) Hx of colonoscopy H/O vaginal surgery History of lumpectomy of right breast Family History Mother Thyroid cancer Diabetes Father Alcoholic Brother Depressed Alcoholic Heroin abuse Maternal Grandmother Diabetes Maternal Grandfather Stroke Paternal Grandfather Parkinson disease Paternal Grandmother Hx of schizophrenia Social History Alcohol intake: current Alcohol intake frequency: holidays/special occasions only Patient Tobacco Use Status: Former Tobacco user Substance Use Type: Marijuana Female Reproductive History Menstrual Age of Menarche: 13 Date of last menstrual period: 06/23/25 control method: none Total pregnancies: 1 History of abnormal pap smear: No Physical Exam Vital Signs: Last Vital Signs BP 102/62 06/27/25 13:14 BMI result Body Mass Index 20.6 Const General: healthy appearing, comfortable, no acute distress, well developed and alert Nutritional Appearance: average body habitus Orientation/consciousness: patient oriented x3 Limitations: no limitations HEENT Head: Yes normocephalic Neck Neck: Yes normal visual inspection Chest Chest palpation & inspection: normal inspection of the chest Breast/axilla inspection: normal inspection of the breasts and normal inspection of the axillae Breast/axilla palpation: normal palpation of the breasts and normal palpation of the axillae Resp Effort & Inspection: normal respiratory effort GI Inspection: Yes normal to inspection, No Abdominal wall edema and No distended Palpation (GI): Soft to palpation and nontender Other: External exam within normal limits very large hemorrhoids noted they are not swollen or inflamed however they are large and firm. Speculum exam within normal limits vagina pink and moist nulliparous cervix pink moist healthy appearing with scant to no mucus discharge cervix long close thick mobile nontender adnexa nontender nonenlarged uterus small and midposition to anteverted mobile nontender good tone with Kegel General: Yes bladder normal to palpation External Female Exam: normal external appearance and normal appearance of the urethra Speculum Exam - Vagina: normal appearance of the vagina, normal palpation and normal vaginal discharge Speculum Exam - Cervix: normal appearance of the cervix, normal palpation and nontender Bimanual exam- vagina & uterus: normal bimanual exam, normal palpation, uterine size normal, bladder normal to palpation, consistency normal, normal palpation, uterine mobility normal, uterine shape normal, No Cervical tenderness present, non-tender and no cervical motion tenderness Bimanual Exam- Adnexa, other: normal adnexae, no masses, normal and No adnexal tenderness Neuro General: patient oriented x3 Assessment & Plan Assessment & Plan (1) Ulcerative colitis: Comment: 04/10/25 colonoscopy complete with good prep after irrigation-colitis (sigmoid), proctitis, aphthoid ulcers scattered through out, Moderate diverticulosis (sigmoid), Moderate hemorrhoids Code(s): K51.90 - Ulcerative colitis, unspecified, without complications Category: Medical Qualifiers: Ulcerative colitis location: other ulcerative colitis Digestive disease complication type: with rectal bleeding Qualified Code(s): K51.811 - Other ulcerative colitis with rectal bleeding (2) Diverticulosis: Code(s): K57.90 - Diverticulosis of intestine, part unspecified, without perforation or abscess without bleeding Category: Medical (3) Well woman exam with routine gynecological exam: Code(s): Z01.419 - Encounter for gynecological examination (general) (routine) without abnormal findings Category: Medical (4) Breast cancer screening: Code(s): Z12.39 - Encounter for other screening for malignant neoplasm of breast Category: Medical (5) Screening for malignant neoplasm of cervix: Code(s): Z12.4 - Encounter for screening for malignant neoplasm of cervix Category: Medical (6) Encounter for screening examination for sexually transmitted disease: Code(s): Z11.3 - Encounter for screening for infections with a predominantly sexual mode of transmission Category: Medical Plan -----Discussed in this visit the following: healthy balanced diet, regular and consistent exercise, getting recommended health screens, doing the best she can for her particular health concerns, kegel exercises, pap smear screening and followup recommendations, mammography screening and SBE, normal changes in cycles in her life stage--- . Patient is managing her symptoms mostly she feels with having really changed her diet and intake in many ways avoiding inflammatory foods and dairy though she is able to eat yogurt and she is in moderation with no ill effects. Her symptoms have vastly improved and she is hoping her hemorrhoids continue to improve over time as well If she were to become sexually active in the future she would use condoms for now she is not planning that and she is not planning childbirth in her future either She has a an 85 lb pit bull that keeps her active walking She has a primary care provider at [place] . Pap smear was done as well as testing was offered and done for gonorrhea chlamydia trichomoniasis as well as bacterial vaginosis and yeast. She had no need for other STI screens. Discussed that mammograms will start at age 40 we will see her next year or when she needs to be seen. Coding Level of Care Code Est Pt Prev Care 18-39y(76033) Diagnoses Other ulcerative colitis with rectal bleeding K51.811 Ulcerative colitis location: other ulcerative colitis Digestive disease complication type: with rectal bleeding Diverticulosis K57.90 Well woman exam with routine gynecological exam Z01.419 Breast cancer screening Z12.39 Screening for malignant neoplasm of cervix Z12.4 Encounter for screening examination for sexually transmitted disease Z11.3
[2025-06-27 13:14] VITALS: BP 102/62; BMI 20.6
--- OUTSIDE RECORDS SUMMARY | 2025-06-27 16:40 | XMS_ITS | Clinical Summary ---
Author Organization [facility] Address [address] [place] [address] Phone Care Team Providers Care Inspector Fibrous Wallboard Name Role Phone Unavailable Primary Care Provider [...]
--- OUTSIDE RECORDS SUMMARY | 2025-06-27 16:40 | XMS_ITS | Clinical Summary ---
Author Organization [facility] Address [address] [place] [address] Phone Care Team Providers Care Aids Social Worker Name Role Phone Kathy Oliveira MD Primary Care Prov ider Allergies Active Allergy Reactions Criticality Noted Date Comments Penicillin V Hives 03/02/2014 Medications Gavilax 17 gram/dose oral powder MIX AND DRINK 238 G BY MOUTH ONCE PER COLONOSCOPY PREP INSTRUCTIONS 5 Active Laxative, bisacodyl, 5 mg EC tablet TAKE 4 TABLETS BY MOUTH ONCE PRE COLONOSCOPY INSTRUCTIONS 5 Active hydrOXYzine HCL (ATARAX) 25 mg tablet TAKE 1 TABLET BY MOUTH TWICE A DAY NEEDED FOR ANXIETY 60 tablet 5 5 Active Active Problems Problem Noted Date Diagnosed Date Anxiety 11/21/2020 Current every day smoker 11/21/2020 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 For example, child protective services specialist or elderly care for an older adult? [...] 2:00 PM EST Office Visit Adult Medicine [address] [address] Kathy Oliveira MD [address] [place] [phone] Health Maintenance Due Date Last Done Comments Pneumococcal Vaccine: Pediatrics (0 to 5 Years) and At-Risk Patients (6 to 49 Years) (1 of 2 - PCV) 2009 Cervical Cancer Screening: Pap Smear 09/02/2020 09/02/2017 HIV Screening 06/21/2022 Hepatitis C Screening [...] Associated Diagnosis Comments LIPID PANEL Routine 04/29/2024 PAP SMEAR Routine 09/02/2017 from Last 3 Months or Most Recently Relevant to Health Maintenance Results * (ABNORMAL) Lipid panel (04/29/2024) LDL/HDL Ratio 2 0 - 4 Triglycerides 46 0 - 150 mg/dL Cholesterol 189 0 - 200 mg/dL HDL 79 >=40 mg/dL LDL Cholesterol 101(A) 0 - 100 mg/dL Blood Venous blood specimen / Unknown us Historical Provider MD LAB BLOOD ORDERABLES Shannen l Result * Pap Smear (09/02/2017) Pap smear Abstracted, negative us Historical Provider MD HEALTH MAINTENANCE Final Result from Last 3 Months or Most Recently Relevant to Health Maintenance Insurance [employer] Care Teams Aids Social Worker Relationship Specialty Start Date End Date Kathy Oliveira MD [address] [place] [phone] PCP - General Internal Medicine 02/10/22
--- OUTSIDE RECORDS SUMMARY | 2025-06-27 16:40 | XMS_ITS | Encounter Summary ---
Author Organization [facility] Address [address] [place] [address] Phone Care Team Providers Care Nutrition And Dietetics Instructor Name Role Phone Aida Short MD Primary Care Provider [phone] Encounter Details Date Type Department Care Team (Late st Contact Info) Description 05/01/2011 Documentation [facility] [place] Family Medicine [address] [place] [address] Family Medicine, Physician [address] [place], [place] [id number] Social History Tobacco Use Types Packs/Day Years [...] on filedocumented in this encounter Care Teams Nutrition And Dietetics Instructor Relationship Specialty Start Date End Date Aida Short MD [address] [place] [address] PCP - General 02/20/17 10/21/22 documented as of this encounter
--- OUTSIDE RECORDS SUMMARY | 2025-06-27 16:40 | XMS_ITS | Encounter Summary ---
Author Organization [facility] Address [address] [place] [address] Phone Care Team Providers Care Market Investigator Name Role Phone Aida Short MD Primary Care Provider [phone] Encounter Details Date Type Department Care Team (Late st Contact Info) Description 02/10/2014 Documentation [facility] [place] [address] [place] [address] Family Medicine, Physician [address] [place], [place] 856201 Social History Tobacco Use Types Packs/Day Years [...] on filedocumented in this encounter Care Teams Market Investigator Relationship Specialty Start Date End Date Aida Short MD [address] [place] [address] PCP - General 02/20/17 10/21/22 documented as of this encounter
--- OUTSIDE RECORDS SUMMARY | 2025-06-27 16:40 | XMS_ITS | Encounter Summary ---
Author Organization [facility] Address [address] [place] [address] Phone Care Team Providers Care Dumping Machine Operator Name Role Phone Aida Short MD Primary Care Provider [phone] Encounter Details Date Type Department Care Team (Late st Contact Info) Description 02/26/2017 Conversion Encounter [facility] [place] [address] [place] [address] Social History Tobacco Use Types Packs/Day Years [...] on filedocumented in this encounter Care Teams Dumping Machine Operator Relationship Specialty Start Date End Date Aida Short MD [address] [place] [address] PCP - General 02/20/17 10/21/22 documented as of this encounter
--- OUTSIDE RECORDS SUMMARY | 2025-06-27 16:40 | XMS_ITS | Encounter Summary ---
Author Organization [facility] Address [address] [place] [address] Phone Care Team Providers Care American Studies Professor Name Role Phone Aida Short MD Primary Care Provider [phone] Encounter Details Date Type Department Care Team (Late st Contact Info) Description 02/17/2014 Documentation [facility] [place] Family Medicine [address] [place] [address] Family Medicine, Physician [address] [place], [place] [address]16041 Social History Tobacco Use Types Packs/Day Years [...] on filedocumented in this encounter Care Teams American Studies Professor Relationship Specialty Start Date End Date Aida Short MD [address] [place] [address] PCP - General 02/20/17 10/21/22 documented as of this encounter
== END 2025-06-27 14:58 | disposition home or self-care (01) ==
LOC: HO.HWSM 12:49
PROVIDERS: Visit Provider Advanced Practice Midwife
DX: Z01.419 Encounter for gynecological examination (general) (routine) without abnormal findings (principal); K51.811 Other ulcerative colitis with rectal bleeding; K57.90 Diverticulosis of intestine, part unspecified, without perforation or abscess without bleeding; Z12.39 Encounter for other screening for malignant neoplasm of breast; Z12.4 Encounter for screening for malignant neoplasm of cervix; Z11.3 Encounter for screening for infections with a predominantly sexual mode of transmission
CPT/HCPCS: 99395; 99459

== ENCOUNTER 2025-07-04 11:03 | Outpatient (REF) | payer OTHER, SELFPAY ==
--- OUTSIDE RECORDS SUMMARY | 2025-07-04 12:23 | XMS_ITS | Encounter Summary ---
Author Organization [facility] Address [address] [place] [address] Phone Care Team Providers Care Facilities Coordinator Name Role Phone Aida Short MD Primary Care Provider [phone] Encounter Details Date Type Department Care Team (Late st Contact Info) Description 05/01/2011 Documentation [facility] [place] Family Medicine [address] [place] [address] Family Medicine, Physician [address] [place], [place] 219211 Social History Tobacco Use Types Packs/Day Years [...] on filedocumented in this encounter Care Teams Facilities Coordinator Relationship Specialty Start Date End Date Aida Short MD [address] [place] [address] PCP - General 02/20/17 10/21/22 documented as of this encounter
--- OUTSIDE RECORDS SUMMARY | 2025-07-04 12:23 | XMS_ITS | Encounter Summary ---
Author Organization [facility] Address [address] [place] [address] Phone Care Team Providers Care Recooperer Name Role Phone Aida Short MD Primary Care Provider [phone] Encounter Details Date Type Department Care Team (Late st Contact Info) Description 02/17/2014 Documentation [facility] [place] Family Medicine [address] [place] [address] Family Medicine, Physician [address] [place], [place] [address]44[address] Social History Tobacco Use Types Packs/Day Years [...] on filedocumented in this encounter Care Teams Recooperer Relationship Specialty Start Date End Date Aida Short MD [address] [place] [address] PCP - General 02/20/17 10/21/22 documented as of this encounter
--- OUTSIDE RECORDS SUMMARY | 2025-07-04 12:23 | XMS_ITS | Clinical Summary ---
Author Organization [facility] Address [address] [place] [address] Phone Care Team Providers Care Separator Inserter Name Role Phone Unavailable Primary Care Provider [...]
--- OUTSIDE RECORDS SUMMARY | 2025-07-04 12:23 | XMS_ITS | Encounter Summary ---
Author Organization [facility] Address [address] [place] [address] Phone Care Team Providers Care Color Television Console Monitor Name Role Phone Aida Short MD Primary Care Provider Encounter Details Date Type Department Care Team (Late st Contact Info) Description 02/10/2014 Documentation [facility] [place] Family Medicine [address] [place] [address] Family Medicine, Physician [address] [place], [place] [address]25[address] Social History Tobacco Use Types Packs/Day Years [...] on filedocumented in this encounter Care Teams Color Television Console Monitor Relationship Specialty Start Date End Date Aida Short MD [address] [place] [phone] PCP - General 02/20/17 10/21/22 documented as of this encounter
--- OUTSIDE RECORDS SUMMARY | 2025-07-04 12:23 | XMS_ITS | Encounter Summary ---
Author Organization [facility] Address [address] [place] [address] Phone Care Team Providers Care Elevated Motorman Name Role Phone Aida Short MD Primary Care Provider [phone] Encounter Details Date Type Department Care Team (Late st Contact Info) Description 02/26/2017 Conversion Encounter [facility] [place] [address] [place] [address] Social History Tobacco Use Types Packs/Day Years [...] on filedocumented in this encounter Care Teams Elevated Motorman Relationship Specialty Start Date End Date Aida Short MD [address] [place] [address] PCP - General 02/20/17 10/21/22 documented as of this encounter
--- OUTSIDE RECORDS SUMMARY | 2025-07-04 12:23 | XMS_ITS | Clinical Summary ---
Author Organization [facility] Address [address] [place] [address] Phone Care Team Providers Care Deli Associate Name Role Phone Kathy Oliveira MD Primary [...] Administration Dates Next Due DTP 04/11/1994, 2,1990,08/19,1990 [id number] (Pentacel) 2mo to less than 5yo 07/22/1991,1990,1990,06/23 [...] ---- OTHER ----; COMMENT: vaginal reconstruction, labiaplasty, [facility] BREAST LUMPECTOMY 08/15/2014 Right PROCEDURE: HISTORICAL BREAST [...] for your loved ones. For example, child welfare caseworker or elderly care for an older adult? [...] 2:00 PM EST Office Visit Adult Medicine [address] [phone] Kathy Oliveira MD [address] [place] [address] [phone] Health Maintenance Due Date Last Done Comments [...] to Health Maintenance Insurance [employer] Care Teams Deli Associate Relationship Specialty Start Date End Date Kathy Oliveira MD [address] [place] [phone] PCP - General Internal Medicine 02/10/22
== END 2025-07-04 11:04 | disposition home or self-care (01) ==
LOC: HO.LNP 11:03
PROVIDERS: Visit Provider Nurse Practitioner Family
DX: K51.811 Other ulcerative colitis with rectal bleeding (principal)
CPT/HCPCS: 83993